=== PATIENT | female | born 1980 | race Caucasian/White ===

== ENCOUNTER 2016-09-21 10:37 | Inpatient (IN) | payer OTHER ==
--- NOTE | 2016-09-13 13:57 | PREOPHP ---
DATE OF ADMISSION: 09/21/2016 The patient is to have surgery with Dr. Andreas Kirkpatrick 09/21/2016. REASON FOR CONSULTATION: Consultation requested by Dr. Andreas Kirkpatrick for medical evaluation and clearance of a 36-year-old woman about to undergo surgery on her left hip. Thank you, Dr. Kirkpatrick, for allowing us to participate in the care of this patient. HISTORY OF PRESENT ILLNESS: Jenifer Cruz, a 36-year-old woman with problems in terms of her left hip secondary to a work injury, is currently being admitted for the correction of the above. In terms of her prior surgical and medical history, surgically she has had arthroscopic surgery of the right knee and had 2 CLINICAL ACCOUNT SPECIALIST laparoscopic procedures for cysts, etc. She has had no medical hospitalizations, has not broken any big bones. ALLERGIES: NOT ALLERGIC TO ANY MEDICATIONS. MEDICATIONS: Other than taking pain medications and anti-inflammatory medication and some B12, she does not take any other chronic medications. She describes her general health as being good. SOCIAL HISTORY: The patient is , has no children. She does not smoke. Alcohol socially. Does drink coffee. Has no difficulty sleeping at night and is employed. FAMILY HISTORY: Both parents are alive and both mother and father are 66 years old. The mother has had a history of skin cancer. Father had a stroke and is a diabetic. Two brothers are in good health. There is a family history, however, of diabetes, heart cancer, hypertension, and stroke. REVIEW OF SYSTEMS HEENT: Has periodic tension headaches. CARDIORESPIRATORY: Denies any chest pain or shortness of breath. GASTROINTESTINAL: No, melena or hematemesis. GENITOURINARY: No urgency, frequency. GYNECOLOGIC: Has regular menses, does have endometriosis to date with her advanced practice psychiatric nurse. MUSCULOSKELETAL: Positive for left hip pain. NEUROPSYCHIATRIC: Positive for the patient being somewhat despondent because of the fact that she cannot really work without pain. GENERAL HEALTH: As above. PHYSICAL EXAMINATION: VITAL SIGNS: The patient's blood pressure was 144/90, pulse was 80 and regular , respirations were 18, temperature 98.5, height 67-1/2 inches, weight 300 pounds. GENERAL: The patient was noted to be a well-developed, well-nourished female, alert and cooperative, in no apparent acute distress, oriented to time, place, and person. HEAD, EARS, EYES, NOSE AND THROAT: Head was atraumatic. Eyes: Pupils were equal, reactive to light and accommodation. Fundi were benign. Tympanic membranes were unremarkable. Nose was negative. Mouth was unremarkable. Fair oral hygiene was present. NECK: Supple without any rigidity. Trachea was midline. Thyroid was unremarkable. Neck veins were flat. Carotid pulses were equal. No bruits were heard. BACK: Unremarkable. CHEST: Symmetrical. BREASTS AND AXILLARY: Did not reveal any masses. LUNGS: Clear to percussion and auscultation. HEART: PMI was at the fifth intercostal space at the midclavicular line. A regular sinus rhythm was noted. No significant murmurs, rubs, or gallops being elicited. ABDOMEN: Soft, good bowel sounds were noted. No significant organomegaly, masses, or tenderness. PELVIRECTAL: Exam per advanced practice psychiatric nurse. EXTREMITIES: Did not reveal any clubbing, edema or cyanosis. Peripheral pulses were physiologic. SKIN: Moist and warm without any eruptions. No gross lymphadenopathy was noted. NEUROLOGIC: Grossly intact. IMPRESSION: 1. Trochanteric bursitis, left hip. 2. Endometriosis. 3. Metabolic syndrome. 4. Obesity. 5. Stable health. LABORATORIES: Review of laboratory and other data revealed the following: The patient's chemistry panel revealed normal electrolytes, random glucose of 116, calcium borderline at 8.5. BUN, creatinine and liver function tests normal. Serum iron was low, test negative. CBC, UA, and PTT were normal. The patient's EKG was normal as was her chest x-ray. DISCUSSION: Dr. Kirkpatrick, I see no contraindication in this patient undergoing current proposed surgery and under desired form of anesthesia and will be more than happy to follow her up with you during her stay at [facility]. Thank you again, Dr. Kirkpatrick, for allowing us to participate in care of this patient. Dictated By: JAKI LAYTON/MIKE Conf#: [id number] DID#: [id number] MTDD
[2016-09-20 16:13] VITALS: BMI 46.8
[2016-09-21] VITALS (18 sets, daily range): BP systolic 116–170; BP diastolic 57–97; PULSE 54–84; RESP 14–20; Ht 170.2 cm; Wt 134.1 kg
[~2016-09-21] VITALS: Ht 170.2 cm; Wt 134.1 kg
[~2016-09-21 10:37] MED LIST: BUPIVACAINE 0.5% (SDV) 30 ML, morphine SULFATE (PF) 8 MG, EPINEPHrine 0.3 MG, KETOROLAC... IRR SCH; CEFAZOLIN 2 GM/50 ML (PMX) 50 ML IVPB ONE; DEXAMETHASONE 1 MG TAB PO ONE; GABAPENTIN 300 MG CAP PO ONE; TRANEXAMIC ACID 1,000 MG in SOD CHLORIDE 0.9% 100 ML IVPB ONE; traMADol 50 MG TAB PO ONE
[2016-09-21] MEDS ORDERED: CA CHLORIDE 10% 10 ML SYRINGE ONE (12:56)
[2016-09-21] MEDS ORDERED: POLYMYXIN/BACITRACIN 1L IRRIG ONE (12:56)
[2016-09-21] MEDS ORDERED: THROMBIN 5000 UNIT VIAL ONE (12:56)
--- NOTE | 2016-09-21 13:52 | HPN ---
Date/Time of Note Date/Time of Note DATE: 09/21/16 TIME: 13:51 Interval H&P Admission Note Pt. seen H&P reviewed: No system changes MICHAEL FERRO MD Sep 21, 2016 13:52
[2016-09-21] MEDS ORDERED: MIDAZOLAM 1 MG/ML 2 ML INJ ONE ×2 (14:20→16:08)
[2016-09-21] MEDS ORDERED: MEPERIDINE 25 MG INJ IV PRN (15:30)
[2016-09-21] MEDS ORDERED: morphine (1 MG/ML) 10ML SYRINGE IV PRN ×2 (15:30)
[2016-09-21] MEDS ORDERED: DIPHENHYDRAMINE 50 MG INJ IV PRN ×2 (15:30→16:00)
[2016-09-21] MEDS ORDERED: FENTAnyl 50 MCG/ML VIAL IV PRN (15:30)
[2016-09-21] MEDS ORDERED: ONDANSETRON 4 MG INJ IV PRN ×2 (15:30→16:00)
[2016-09-21] MEDS ORDERED: ONDANSETRON 4 MG INJ ONE (15:46)
[2016-09-21] MEDS ORDERED: LIDOCAINE 2% (SDV) 5 ML INJ ONE (15:46)
[2016-09-21] MEDS ORDERED: ROCURONIUM 50 MG INJ ONE (15:46)
[2016-09-21] MEDS ORDERED: NEOSTIGMINE 3 MG/3 ML SYRINGE ONE (15:46)
[2016-09-21] MEDS ORDERED: GLYCOPYRROLATE 0.4 MG INJ ONE (15:46)
[2016-09-21] MEDS ORDERED: PROPOFOL 40 ML ONE (15:46)
[2016-09-21] MEDS ORDERED: CEFAZOLIN 1 GM INJ ONE (15:46)
[2016-09-21] MEDS ORDERED: TRANEXAMIC ACID 1,000 MG in SOD CHLORIDE 0.9% 100 ML IV ONE (16:00)
[2016-09-21] MEDS ORDERED: KETOROLAC 15 MG INJ IV PRN (16:00)
[2016-09-21] MEDS ORDERED: ACETAMINOPHEN 500 MG TAB PO PRN (16:00)
[2016-09-21] MEDS ORDERED: BETHANECHOL 25 MG TAB PO PRN (16:00)
[2016-09-21] MEDS ORDERED: morphine 2 MG INJ IV PRN (16:00)
[2016-09-21] MEDS ORDERED: OXYCODONE/ACETAMINOPHEN (5/325) TAB PO PRN (16:00)
[2016-09-21] MEDS ORDERED: MAGNESIUM HYDROXIDE 30ML CUP PO PRN (16:00)
[2016-09-21] MEDS ORDERED: ZOLPIDEM 5 MG TAB PO PRN (16:00)
--- NOTE | 2016-09-21 16:00 | OPR ---
DATE OF OPERATION: 09/21/2016 SURGEON: Michael Kirkpatrick MD INDUSTRIAL PHOTOGRAPHER: Radha Turcios MD PREOPERATIVE DIAGNOSIS: Ischiofemoral impingement, left hip with bursitis. POSTOPERATIVE DIAGNOSIS: 1. Left hip trochanteric (traumatic) bursitis. 2. Ischiofemoral impingement, left hip. PROCEDURES: 1. Left hip open trochanteric bursectomy. 2. Left hip open partial resection of the greater trochanter prominence. Woods Laborer surgeon, Radha Turcios MD, was asked to be present at my request as a result of significant costa rgical complexity associated with this procedure, including positioning of the extremity, manipulati on and protection of the neurovascular structures. In my opinion, the assistance offered by a surgi jeanne dental technician is insufficient and Dr. Turcios should be compensated for his time. PROCEDURE IN DETAIL: Following administration of general endotracheal anesthesia, the patient was p laced in the lateral position with the left side up. Prominences were padded and axillary fold was placed. The patient was very large. She was approximately 350 pounds, so it was very difficult pos itioning. Sterile prep and drape was then undertaken. A lateral incision was then made over the tr ochanter. The incision was carried down through approximately 6 inches of fatty tissue to the later al aspect of the iliotibial band. This was incised, the abductor was split and the trochanteric pro minence was then identified. Severe bursal reactive tissue was then excised completing the trochant radha bursectomy. The posterior aspect of the trochanteric prominence was then excised using an oste otome. Approximately a 7 mm resection was undertaken. A good decompression was confirmed. When he r leg was then placed in extension, no significant impingement was noted. The wound was then thoroughly irrigated, closed in multiple layers. A Prineo dressing was then appl ied with watertight closure. The patient was then placed supine, extubated and transported to [facility] room in stable condition, tolerating the procedure well. Dictated By: MICHAEL GOMEZ/MIKE Conf#: [id number] DID#: [id number]
[2016-09-21] MEDS: CEFAZOLIN 1 GM/50 ML (PMX) 50 ML IVPB SCH (16:17)
[2016-09-21] MEDS ORDERED: MIDAZOLAM 1 MG/ML 2 ML INJ IV ONE (16:30)
[2016-09-21] MEDS: DEXAMETHASONE 2 MG TAB PO SCH (17:36)
[2016-09-21] MEDS: OXYCODONE/ACETAMINOPHEN (5/325) TAB PO PRN (17:36)
[2016-09-21] MEDS: LACTATED RINGER'S 1,000 ML IV SCH ×2 (18:26→21:55)
[2016-09-21 19:39] LABS: ADD SCAN DIFF NO
[2016-09-21 19:41] LABS: BASOPHILS % 0.2 % (0.0-2.0); EOSINOPHILS % 0.2 % (0.0-7.0); HEMATOCRIT 36.8 % (37.0-47.0); HEMOGLOBIN 11.9 g/dl (12.0-16.0); LYMPHOCYTES # 1.4 10^3/ul (0.8-2.9); LYMPHOCYTES % 11.9 % (15.0-51.0); MEAN CORPUSCULAR HEMOGLOBIN 27.8 pg (29.0-33.0); MEAN CORPUSCULAR HGB CONC 32.3 g/dl (32.0-37.0); MEAN PLATELET VOLUME 9.1 fl (7.4-10.4); MONOCYTE # 0.5 10^3/ul (0.3-0.9); MONOCYTES % 4.4 % (0.0-11.0); NEUTROPHIL # 9.8 10^3/ul (1.6-7.5); PLATELET COUNT 286 10^3/UL (140-415); RED BLOOD COUNT 4.28 10^6/ul (4.20-5.40); RED CELL DISTRIBUTION WIDTH 12.9 % (11.5-14.5); WHITE BLOOD COUNT 11.8 10^3/ul (4.8-10.8)
--- NOTE | 2016-09-21 20:01 | RADRPT ---
PROCEDURE: XR Pelvis. CLINICAL INDICATION: Status post left bursectomy. TECHNIQUE: Single AP view of the pelvis. COMPARISON: None. FINDINGS: There is no fracture or dislocation. The joint spaces are preserved. The bowel gas pattern is sisi l. There is soft tissue air in the left hip region. IMPRESSION: 1. No osseous or articular abnormality. 2. Postoperative air in the left hip soft tissues. RPTAT: HTAR .Jake Barnhart MD, MD Date Time Electronically viewed and signed by .Jake Barnhart MD, MD on 09/21/2016 20:01 .R/
[2016-09-21] MEDS: SENNA/DOCUSATE NA (8.6MG/50MG) TAB PO SCH (20:27)
[2016-09-21] MEDS ORDERED: GABAPENTIN 300 MG CAP PO SCH (21:00)
[2016-09-21] MEDS: morphine 4 MG/ML VIAL IV PRN (21:51)
[2016-09-22] MEDS: CEFAZOLIN 1 GM/50 ML (PMX) 50 ML IVPB SCH ×2 (00:13→08:32)
[2016-09-22] MEDS: DEXAMETHASONE 2 MG TAB PO SCH ×3 (00:13→13:10)
[2016-09-22] MEDS: LACTATED RINGER'S 1,000 ML IV SCH ×2 (01:26→11:35)
[2016-09-22] MEDS: morphine 4 MG/ML VIAL IV PRN ×2 (02:59→07:36)
[2016-09-22] MEDS: OXYCODONE/ACETAMINOPHEN (5/325) TAB PO PRN ×3 (05:08→18:37)
[2016-09-22 05:48] LABS: ADD SCAN DIFF NO
[2016-09-22 05:56] LABS: BASOPHILS % 0.1 % (0.0-2.0); HEMATOCRIT 37.3 % (37.0-47.0); HEMOGLOBIN 11.8 g/dl (12.0-16.0); LYMPHOCYTES # 1.5 10^3/ul (0.8-2.9); LYMPHOCYTES % 12.3 % (15.0-51.0); MEAN CORPUSCULAR HEMOGLOBIN 27.7 pg (29.0-33.0); MEAN CORPUSCULAR HGB CONC 31.6 g/dl (32.0-37.0); MEAN CORPUSCULAR VOLUME 87.6 fl (82.0-101.0); MEAN PLATELET VOLUME 9.4 fl (7.4-10.4); MONOCYTE # 0.6 10^3/ul (0.3-0.9); MONOCYTES % 4.7 % (0.0-11.0); NEUTROPHIL # 9.7 10^3/ul (1.6-7.5); NEUTROPHILS % 82.6 % (39.0-77.0); PLATELET COUNT 318 10^3/UL (140-415); RED BLOOD COUNT 4.26 10^6/ul (4.20-5.40); RED CELL DISTRIBUTION WIDTH 12.7 % (11.5-14.5); WHITE BLOOD COUNT 11.8 10^3/ul (4.8-10.8)
--- NOTE | 2016-09-22 06:50 | PN ---
Date/Time of Note Date/Time of Note DATE: 09/22/16 TIME: 06:49 24 hour Interval Summary Patient is awake and alert with minimal pain. Physical examination: Wound is clean and dry. She is neurologically intact. There are no signs of DVT. Impression: Status post trochanteric bursectomy Plan: She will begin physical therapy be discharged later this afternoon. Physical Exam Vital Signs Date Time Temp Pulse Resp B/P Pulse Ox O2 Delivery O2 Flow Rate FiO2 09/21/16 20:10 97.0 65 20 133/68 95 09/21/16 20:00 Nasal Cannula 09/21/16 18:30 2.0 Intake and Output 09/21/16 09/21/16 09/22/16 15:00 23:00 07:00 Intake Total 2300 ml 1150 ml Output Total 450 ml Balance 1850 ml 1150 ml VTE Prophylaxis VTE Prophylaxis Intervention: anti-embolic stocking Lines/Catheters IV Catheter Type: Saline Lock Lobo in Place: No Results Result Diagram: 09/22/16 0447 Results 24hrs Laboratory Tests Test 09/21/16 19:30 09/22/16 04:47 White Blood Count 11.8 H 11.8 H Red Blood Count 4.28 4.26 Hemoglobin 11.9 L 11.8 L Hematocrit 36.8 L 37.3 Mean Corpuscular Volume 86.0 87.6 Mean Corpuscular Hemoglobin 27.8 L 27.7 L Mean Corpuscular Hemoglobin Concent 32.3 31.6 L Red Cell Distribution Width 12.9 12.7 Platelet Count 286 318 Mean Platelet Volume 9.1 9.4 Neutrophils % 83.0 H 82.6 H Lymphocytes % 11.9 L 12.3 L Monocytes % 4.4 4.7 Eosinophils % 0.2 0.0 Basophils % 0.2 0.1 Nucleated Red Blood Cells % 0.0 0.0 Neutrophils # 9.8 H 9.7 H Lymphocytes # 1.4 1.5 Monocytes # 0.5 0.6 Eosinophils # 0.0 0.0 Basophils # 0.0 0.0 Nucleated Red Blood Cells # 0.0 0.0 MICHAEL FERRO MD Sep 22, 2016 06:50
--- NOTE | 2016-09-22 06:51 | DS ---
Date/Time of Note Date/Time of Note DATE: 09/22/16 TIME: 06:50 Discharge Summary Admission/Discharge Info Admit Date/Time Sep 21, 2016 at 11:00 Discharge Date/Time September 22, 2016 following therapy Final Diagnosis Trochanteric bursitis left hip with ischiofemoral impingement Patient Condition: Good Procedures Open bursectomy with partial excision of greater trochanter Hx of Present Illness Chronic left-sided pain following work injury Hospital Course Patient underwent an uncomplicated procedure. Postoperative day #1 she was independent in physical therapy and discharged Primary Care Provider Not On Staff Doctor Pending Labs Laboratory Tests Test 09/21/16 19:30 09/22/16 04:47 White Blood Count 11.810^3/ul (4.8-10.8) 11.810^3/ul (4.8-10.8) Red Blood Count 4.2810^6/ul (4.20-5.40) 4.2610^6/ul (4.20-5.40) Hemoglobin 11.9g/dl (12.0-16.0) 11.8g/dl (12.0-16.0) Hematocrit 36.8% (37.0-47.0) 37.3% (37.0-47.0) Mean Corpuscular Volume 86.0fl (82.0-101.0) 87.6fl (82.0-101.0) Mean Corpuscular Hemoglobin 27.8pg (29.0-33.0) 27.7pg (29.0-33.0) Mean Corpuscular Hemoglobin Concent 32.3g/dl (32.0-37.0) 31.6g/dl (32.0-37.0) Red Cell Distribution Width 12.9% (11.5-14.5) 12.7% (11.5-14.5) Platelet Count 99809^3/UL (140-415) 60833^3/UL (140-415) Mean Platelet Volume 9.1fl (7.4-10.4) 9.4fl (7.4-10.4) Neutrophils % 83.0% (39.0-77.0) 82.6% (39.0-77.0) Lymphocytes % 11.9% (15.0-51.0) 12.3% (15.0-51.0) Monocytes % 4.4% (0.0-11.0) 4.7% (0.0-11.0) Eosinophils % 0.2% (0.0-7.0) 0.0% (0.0-7.0) Basophils % 0.2% (0.0-2.0) 0.1% (0.0-2.0) Nucleated Red Blood Cells % 0.0/100WBC (0.0-0.0) 0.0/100WBC (0.0-0.0) Neutrophils # 9.810^3/ul (1.6-7.5) 9.710^3/ul (1.6-7.5) Lymphocytes # 1.410^3/ul (0.8-2.9) 1.510^3/ul (0.8-2.9) Monocytes # 0.510^3/ul (0.3-0.9) 0.610^3/ul (0.3-0.9) Eosinophils # 0.010^3/ul (0.0-0.5) 0.010^3/ul (0.0-0.5) Basophils # 0.010^3/ul (0.0-0.1) 0.010^3/ul (0.0-0.1) Nucleated Red Blood Cells # 0.010^3/ul (0.0-0.0) 0.010^3/ul (0.0-0.0) MICHAEL FERRO MD Sep 22, 2016 06:51
--- NOTE | 2016-09-22 06:52 | PDOCDIS ---
Discharge Instructions DIAGNOSIS Discharge Diagnosis: Trochanteric bursitis with ischiofemoral impingement CONDITION Patient Condition: Good HOME CARE INSTRUCTIONS: Diet Instructions: Regular ACTIVITY: Activity Restrictions: Slowly Increase Activity Bathing Restrictions: Shower FOLLOW UP/APPOINTMENTS Appointments Two-week SCHOOL/WORK RELEASE May return to School/Work with: With Restrictions School/Work Release Comment: Slowly increase activities may discharge crutches when comfortable MICHAEL FERRO MD Sep 22, 2016 06:52
[2016-09-22 08:27] VITALS: BP 116/66; RESP 18
[2016-09-22] MEDS: SENNA/DOCUSATE NA (8.6MG/50MG) TAB PO SCH (08:34)
[2016-09-22] MEDS ORDERED: ASPIRIN 81 MG TAB PO SCH (09:00)
[2016-09-22] MEDS ORDERED: CYCLOBENZAPRINE 10 MG TAB PO PRN (12:00)
--- NOTE | 2016-09-22 16:14 | CONS ---
DATE OF ADMISSION: 09/21/2016 DATE OF CONSULTATION: 09/22/2016 TYPE OF CONSULTATION: Postoperative consultation followup. The patient was seen approximately at 11:00 a.m. on 09/22/2016. HISTORY OF PRESENT ILLNESS: The patient is somewhat groggy postoperatively. Yesterday at a late adela r, probably secondary to pain medications, the patient's vital signs revealed the following: VITAL SIGNS: Temperature 98.2, pulse 61, respirations 18, blood pressure 116/66, O2 saturation 94% o n room air. HEENT: Unremarkable. LUNGS: Clear. HEART: Reveals a regular exam. IMPRESSION: 1. Status post trochanteric bursitis, left hip open surgery. 2. Metabolic syndrome. 3. Endometriosis. 4. Nausea, probably secondary to the pain medications versus anesthesia. DISCUSSION: Review of laboratory and other data reveals the following: The patient's white count i s 11.8, but hemoglobin and hematocrit are stable. No chemistries were done. DISCUSSION: Plan is per Dr. Kirkpatrick. Medically the patient has been relatively stable; does not ta ke any chronic medications. She may benefit from some anti-nauseant. Thank you again, Dr. Kirkpatrick, for allowing us to participate in the care of this patient. Dictated By: JAKI LAYTON/MIKE Conf#: [id number] DID#: [id number]
== END 2016-09-22 18:50 | disposition home or self-care (01) | DRG 481 ==
LOC: REC 11:00 → MS1 17:00
PROVIDERS: ADMIT Orthopaedic Surgery; ATTEND Orthopaedic Surgery
PROC: 0QN Lower Bones, Release (ICD-10-PCS; 2016-09-21)
PROC: 0MBM0ZZ Excision of Left Hip Bursa and Ligament, Open Approach (ICD-10-PCS; principal; 2016-09-21 15:00)
DX: M70.62 Trochanteric bursitis, left hip (principal); Z68.42 Body mass index [BMI] 45.0-49.9, adult; E88.81 Metabolic syndrome and other insulin resistance; M25.852 Other specified joint disorders, left hip; E66.9 Obesity, unspecified
CPT/HCPCS: 72170; 84703; 85025; 86999; 97116; 97162; 97530; J0171; J0690; J0735; J1885; J2175; J2250; J2270; J2274; J2405; J2710; J3010; J3370; J7120

== ENCOUNTER 2018-05-30 07:53 | Inpatient (IN) | payer BC, OTHER ==
--- NOTE | 2018-05-26 12:23 | PREOPHP ---
DATE OF ADMISSION: 05/30/2018 The patient to have surgery with Dr. Michael Ferro on 05/30/2018. REASON FOR CONSULTATION: Consultation requested by Dr. Michael Ferro for medical evaluation and clearance of a 38-year-old woman about to undergo surgery. Thank you, Dr. Ferro, for allowing us to participate in care of this patient. HISTORY OF PRESENT ILLNESS: Jenifer Cruz, a 38-year-old woman, issues with her left hip is currently being admitted for correction of the above. PAST MEDICAL AND SURGICAL HISTORY: She has had no medical hospitalizations, has had a left hip surgery in 2017, also had arthroscopic surgery on her right knee and has had 2 endoscopic gynecological procedures for a variety of disorders. She has not broken any bones. MEDICATIONS: She is currently taking; 1. Tramadol 50 mg as needed. 2. Amitriptyline 25 mg at bedtime. 3. Trazodone 50 mg at bedtime. ALLERGIES: SHE IS NOT ALLERGIC TO ANY MEDICATIONS. SOCIAL HISTORY: The patient is currently , has no children. She does not smoke. Alcohol socially. Does not drink coffee, is employed and usually has no difficulty sleeping at night. FAMILY HISTORY: Both parents are alive. Father is 68, is diabetic, has had a stroke. Mother is 68, has had skin cancer, but generally is doing well. Two brothers in good health. There is a family history of diabetes, heart, cancer, hypertension and stroke. No thyroid issues. REVIEW OF SYSTEMS: HEENT: Unremarkable. CARDIORESPIRATORY: Denies any chest pain or shortness of breath. GASTROINTESTINAL: No melena or hematemesis. GENITOURINARY: No urgency, frequency. GYNECOLOGIC: Has irregular periods. 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 MUSCULOSKELETAL: Positive for left hip pain. NEUROPSYCHIATRIC: Unremarkable. GENERAL HEALTH: As above. PHYSICAL EXAMINATION: VITAL SIGNS: The patient's blood pressure was 130/90, pulse was 70 and regular, respirations were 18, temperature 97.9, height is 5 feet and 5-1/2 inches, weight 314 pounds. GENERAL: The patient was noted to be a well-developed, well-nourished female, alert and cooperative, in no apparent acute distress, oriented to time, place and person. HEENT: Head was atraumatic. Eyes: Pupils were equal, reactive to light and accommodation. Fundi were grossly benign. Tympanic membranes were unremarkable. Nose was negative. Mouth was unremarkable. Fair oral hygiene was present. NECK: Supple without any rigidity. Trachea was midline. Thyroid was within normal limits. Neck veins were flat. Carotid pulses were equal. No bruits were heard. BACK: Unremarkable. CHEST: Symmetrical. BREASTS AND AXILLARY: Did not reveal any obvious masses. LUNGS: Clear to percussion and auscultation. HEART: PMI is 5th intercostal space at the midclavicular line. A regular sinus rhythm was noted. No significant murmurs, rubs or gallops being elicited. ABDOMEN: Soft. Good bowel sounds were noted. No significant organomegaly, masses or tenderness. GENITALIA AND PELVIRECTAL: Per university administrator, up-to-date. EXTREMITIES: Did not reveal any clubbing, edema, cyanosis. Peripheral pulses were physiologic. SKIN: Moist and warm without any eruptions. No gross lymphadenopathy was noted. NEUROLOGIC: Grossly intact. IMPRESSION: 1. Trochanteric bursitis, left hip with abductor tear and sciatic nerve entrapment. 2. Metabolic syndrome. 3. Stable health. REVIEW OF LABORATORY AND OTHER DATA: Revealed the following: The patient's chemistry panel including electrolytes, glucose, BUN, creatinine, calcium, uric acid, liver function tests, proteins, test, CBC, UA, PT and PTT were normal. The patient's EKG was normal and her chest x-ray revealed minor degenerative changes, no acute infiltrates nor were there any acute cardiopulmonary changes noted. DISCUSSION: Dr. Ferro, I see no contraindication in this patient undergoing current proposed surgery under desired form of anesthesia. I feel she is a suitable candidate at this particular point in time and we will be more than happy to follow her with you during her stay at [facility]. Thank you again, Kaya, for allowing us to participate in the care of this patient. Dictated By: JAKI IVLLAR MD SS/MIKE Conf#: [id number] DID#: [id number] CC: MICHAEL FERRO MD;*EndCC* MTDD
[~2018-05-30] VITALS: Ht 165.1 cm; Wt 152.0 kg
[2018-05-30] VITALS (28 sets, daily range): BP systolic 112–153; BP diastolic 60–89; PULSE 54–82; RESP 13–59
--- NOTE | 2018-05-30 05:46 | HPN ---
Date/Time of Note Date/Time of Note DATE: 05/30/18 TIME: 05:46 Interval H&P Admission Note Pt. seen H&P reviewed: No system changes MICHAEL FERRO MD May 30, 2018 05:46
--- NOTE | 2018-05-30 05:51 | OPR ---
Date/Time of Note Date/Time of Note DATE: 05/30/18 TIME: 05:46 Operative Report Procedure Date: May 30, 2018 Preoperative Diagnosis Left abductor tendon tear with chronic bursitis Postoperative Diagnosis 1. Left gluteus medius tear 2. Left chronic trochanteric bursitis 3. Left sciatic nerve entrapment Operation/Procedure Performed 1. Left open gluteus medius repair 2. Left open trochanteric bursectomy 3. Left sciatic neural lysis 4. Injection of PRP solution to abductor muscle repair Surgeon see signature line [employer]orer [employer] Qasim Penn PA-C Second Laborer [employer]: SABI ODOM Anesthesia Type: general Estimated Blood Loss: 10 - 50 ml's Transfusion none Specimen None Grafts/Implants See op note Complications none Pt Condition Post Procedure: stable Disposition: PACU Procedure Description SENIOR INTEGRATION ARCHITECT SURGEON: Qasim Penn PA-C was asked to be present at my request. The patient is an obese woman and positioning of her extremity is quite difficult. In addition, the assistance offered by a surgical garment assembler is insufficient as a result of the exposure required which in this case obviously involves protection of the sciatic nerve and other neurovascular structures. In my opinion the assistance offered by a surgical garment assembler is insufficient and he should be compensated for his time. PROCEDURE IN DETAIL: Following the administration of general endotracheal a nesthesia supplemented with a local anesthetic, the patient was placed in the right lateral decubitus position after carefully turning her. An axillary fold was placed. The left forearm was sterilely prepped and 60 cc of blood were withdrawn from the antecubital fossa. The blood was then given to the unit support representative from the company to prepare the solution into a PRP concentrate. Sterile prep and drape was then undertaken of the left hip and thigh. A lateral incision was then made over the trochanteric prominence of the left hip. The incision was carried through the subcutaneous tissues exposing the iliotibial band. The IT band was then incised and a severe amount of bursal reactive tissue was then excised. Once the bursectomy was completed, the adductor was visualized. The lateral aspect of the abductor was then investigated and a palpable defect was noted. There was some mild atrophy noted with some fatty infiltration. The entirety of the gluteus medius was avulsed and retracted about 5 mm. THere was no atrophy. A severe bursal reactive tissue was then noted. The bursectomy was completed over the trochanteric prominence and several osteophytes were resected. In addition, a significant prominence of the more posterior superior trochanter was further resected. Attention was then directed to the more medial aspect where the sciatic nerve was encountered. Significant scarring was noted around the nerve and the nerve was completely mobilized. A good vascularity was noted following the neural l ysis that was completed. The lateral aspect of the trochanter was then curetted down to a bleeding cortical cancellous bed. The tendon of the gluteus medius and minimus were then completely mobilized. Following preparation and resection of the prominent trochanter, an an anchor placed into the trochanter. This was a 5.5 mm, triple loaded anchors was then placed into the trochanter and the sutures were then passed in a mattress fashion through the abductor musculature incorporating both the gluteus minimus and gluteus medius. The previously prepared PRP solution was then injected into the area of the abductor repair prior to closure. The abductor was then reapproximated solidly. The wound was thoroughly irrigated. The iliotibial band was then closed using a running #2 permanent suture. The wound was then closed in layers and a Prenio for the final cover. This was watertight. Estimated blood loss was procedure was 50 cc. MICHAEL FERRO MD May 30, 2018 05:51
[~2018-05-30 07:53] MED LIST changes: -BUPIVACAINE 0.5% (SDV) 30 ML, morphine SULFATE (PF) 8 MG, EPINEPHrine 0.3 MG, KETOROLAC... IRR SCH; +CEFAZOLIN 1 GM INJ ONE; -CEFAZOLIN 2 GM/50 ML (PMX) 50 ML IVPB ONE; +DESFLURANE 15 MIN ONE; -DEXAMETHASONE 1 MG TAB PO ONE; -GABAPENTIN 300 MG CAP PO ONE; +POLYMYXIN/BACITRACIN 1L IRRIG IRR ONE; +SUCCINYLCHOLINE CHLORIDE 100 MG/5 ML SYG IV ONE; -TRANEXAMIC ACID 1,000 MG in SOD CHLORIDE 0.9% 100 ML IVPB ONE; -traMADol 50 MG TAB PO ONE
[2018-05-30] MEDS ORDERED: BUPIVACAINE 0.5% (SDV) 30 ML, morphine SULFATE (PF) 8 MG, EPINEPHrine 0.3 MG, KETOROLAC... IRR SCH ×7 (08:00)
[2018-05-30] MEDS ORDERED: TRANEXAMIC ACID 1,000 MG in DEXTROSE 5% 100 ML IVPB ONE (08:00)
[2018-05-30] MEDS ORDERED: SOD CHLORIDE 0.9% 100 ML, TRANEXAMIC ACID 3,000 MG IRR ONE ×2 (08:00)
[2018-05-30] MEDS ORDERED: GABAPENTIN 300 MG CAP PO ONE (08:00)
[2018-05-30] MEDS ORDERED: DEXAMETHASONE 1 MG TAB PO ONE (08:00)
[2018-05-30] MEDS ORDERED: CEFAZOLIN 2 GM/50 ML (PMX) 50 ML IVPB ONE (08:00)
[2018-05-30] MEDS ORDERED: AMIT25TA9 PO (08:36)
[2018-05-30] MEDS ORDERED: NEOSTIGMINE 3 MG/3 ML SYRINGE ONE (08:41)
[2018-05-30] MEDS ORDERED: CEFAZOLIN 1 GM INJ ONE (08:41)
[2018-05-30] MEDS ORDERED: TRAM50TA PO (08:41)
[2018-05-30] MEDS ORDERED: MIDAZOLAM 1 MG/ML 2 ML INJ ONE (08:41)
[2018-05-30] MEDS ORDERED: DEXAMETHASONE 4 MG/ML 5 ML INJ ONE (08:41)
[2018-05-30] MEDS ORDERED: GLYCOPYRROLATE 0.4 MG INJ ONE (08:41)
[2018-05-30] MEDS ORDERED: FENTAnyl 50 MCG/ML VIAL ONE (08:41)
[2018-05-30] MEDS ORDERED: ROCURONIUM 50 MG INJ ONE (08:41)
[2018-05-30] MEDS ORDERED: PROPOFOL 20 ML ONE (08:41)
[2018-05-30] MEDS ORDERED: ONDANSETRON 4 MG INJ ONE (08:41)
[2018-05-30] MEDS ORDERED: TRAZ-111 PO (08:44)
--- NOTE | 2018-05-30 09:22 | PREAC ---
Date/Time of Note Date/Time of Note DATE: 05/30/18 TIME: 09:20 Anesthesia Eval and Record Evaluation Time Pre-Procedure Interview DATE: 05/30/18 TIME: 09:20 Age 38 Sex female NPO: 8 hrs Preoperative diagnosis LEFT HIP TROCHANTERIC BURSITIS Planned procedure LEFT HIP OPEN ABDUCTOR REPAIR, SCIATIC NEUROLYSIS AND TROCHANTERIC BURSECTOMY Past Medical History Past Medical History: Includes GI: Morbid obesity Surgery & Anesthesia Issues No known issue Meds Anticoagulation: No Beta Sara within 24 hr: No Reason Beta Sara not given: Pt. not on B-Sara Reported Medications Trazodone Hcl* (Trazodone Hcl*) 50 Mg Tablet, 50 MG PO QHS, #30 TAB 05/30/18 Tramadol Hcl* (Ultram*) 50 Mg Tablet, 50 MG PO Q8 PRN for PAIN, TAB 05/30/18 Amitriptyline Hcl* (Amitriptyline Hcl*) 25 Mg Tablet, 25 MG PO QHS, #30 TAB 05/30/18 Current Medications Bupivacaine HCl/ Morphine Sulfate/ Epinephrine/ Ketorolac Tromethamine/ Clonidine/Sodium Chloride/ Vancomycin HCl INTRA-OP IRR ; Start 05/30/18 at 08:00 Meds reviewed: Yes Allergies Coded Allergies: No Known Allergy (Unverified , 05/30/18) RYANN MIMS AT MD'S OFFICE. 09/20/16 0953 Allergies Reviewed: Yes Labs/Studies Labs Reviewed: Reviewed by anesthesiologist test: Negative Pre-procedure Exam Last vitals Vital Signs Date Temp Pulse Resp B/P (MAP) Pulse Ox O2 O2 Flow FiO2 Time Delivery Rate 05/30/18 97.6 74 16 144/88 94 Room Air 08:48 (106) Airway: Adequate mouth opening, Adequate thyromental dist Mallampati: Mallampati II Teeth: Normal Lung: Normal Heart: Normal ASA Physical Status ASA physical status: 4 Emergency: None Planned Anesthetic General/MAC: ETT Planned Pain Management Parenteral pain med, Local by surgeon Pre-operative Attestations Prior to commencing anesthesia and surgery, the patient was re-evaluated, there was verification of: *The patient's identity *The results of appropriate recent lab work and preoperative vital signs *The above evaluation not changing prior to induction *Anesthetic plan, risk benefits, alternative and complications discussed with patient/family; questions answered; patient/family understands, accepts and wishes to proceed. Vignesh Roblero M.D. May 30, 2018 09:22
[2018-05-30] MEDS ORDERED: ONDANSETRON 4 MG INJ IV PRN (09:30)
[2018-05-30] MEDS ORDERED: hydrALAzine 20 MG INJ IV PRN (09:30)
[2018-05-30] MEDS ORDERED: LABETALOL HCL 20MG INJ IV PRN (09:30)
[2018-05-30] MEDS ORDERED: ALBUTEROL 0.083% (NEB) 2.5 MG/3 ML AMP HHN PRN (09:30)
[2018-05-30] MEDS ORDERED: FENTAnyl 50 MCG/ML VIAL IV PRN ×3 (09:30)
[2018-05-30] MEDS ORDERED: MIDAZOLAM 1 MG/ML 2 ML INJ IV PRN (09:30)
[2018-05-30] MEDS ORDERED: HYDROmorphONE 1 MG/5 ML IV SYRINGE IV PRN ×3 (09:30)
[2018-05-30] MEDS ORDERED: MEPERIDINE 25 MG INJ IV PRN (09:30)
[2018-05-30] MEDS ORDERED: DIPHENHYDRAMINE 50 MG INJ IV PRN ×2 (09:30→11:00)
[2018-05-30] MEDS ORDERED: OXYCODONE/ACETAMINOPHEN (5/325) TAB PO PRN ×2 (09:30)
[2018-05-30] MEDS ORDERED: TRIMETHOBENZAMIDE 100 MG/ML VIAL IM PRN (09:30)
[2018-05-30] MEDS ORDERED: IPRATROPIUM (NEB) 0.5 MG/2.5 ML AMP HHN PRN (09:30)
[2018-05-30] MEDS ORDERED: EPHEDrine SULFATE 50 MG/5 ML SYG IV PRN (09:30)
[2018-05-30] MEDS ORDERED: POLYMYXIN/BACITRACIN 1L IRRIG ONE (09:31)
[2018-05-30] MEDS ORDERED: POLYMYXIN/BACITRACIN 1L IRRIG IRR ONE (10:30)
[2018-05-30] MEDS ORDERED: SUGAMMADEX SODIUM 200 MG/2 ML VIAL IV ONE (10:42)
[2018-05-30] MEDS ORDERED: MAGNESIUM HYDROXIDE 30ML CUP PO PRN (11:00)
[2018-05-30] MEDS ORDERED: TRANEXAMIC ACID 1,000 MG in DEXTROSE 5% 100 ML IV ONE (11:00)
[2018-05-30] MEDS ORDERED: ZOLPIDEM 5 MG TAB PO PRN (11:00)
[2018-05-30] MEDS ORDERED: oxyCODONE 5 MG TAB PO PRN (11:00)
[2018-05-30] MEDS ORDERED: NACL 0.9% 3 ML SYG IV SCH (11:00)
--- NOTE | 2018-05-30 11:36 | PAC ---
Date/Time of Note Date/Time of Note DATE: 05/30/18 TIME: 11:36 Post-Anesthesia Notes Post-Anesthesia Note Last documented vital signs Vital Signs Date Temp Pulse Resp B/P (MAP) Pulse Ox O2 O2 Flow FiO2 Time Delivery Rate 05/30/18 97.8 82 14 142/70 97 Nasal 2.0 11:20 (94) Cannula Activity: WNL Respiratory function: WNL Cardiovascular function: WNL Mental status: Baseline Pain reasonably controlled: Yes Hydration appropriate: Yes Nausea/Vomiting absent: Yes Vignesh Roblero M.D. May 30, 2018 11:36
[2018-05-30] MEDS: CEFAZOLIN 1 GM/50 ML (PMX) 50 ML IVPB SCH ×2 (11:47→17:57)
[2018-05-30] MEDS: ACETAMINOPHEN 1000MG/100ML IV 100 ML IVPB SCH ×2 (11:59→18:02)
--- NOTE | 2018-05-30 13:33 | CONS ---
Consult Date/Type/Reason Admit Date/Time May 30, 2018 at 10:42 Initial Consult Date 05/23/2018 Type of Consultation: internal medicine Reason for Consultation pre-op medical evaluation and clearance Requesting Provider: MICHAEL FERRO MD Date/Time of Note DATE: 05/30/18 TIME: 13:28 Subjective complaining of pain in recovery room Objective Vitals Vital Signs Date Temp Pulse Resp B/P (MAP) Pulse Ox O2 O2 Flow FiO2 Time Delivery Rate 05/30/18 62 17 139/64 97 Nasal 2.0 12:02 (89) Cannula 05/30/18 97.8 11:20 Intake and Output 05/29/18 05/29/18 05/30/18 1515:00 23:00 07:00 IntakeIntake Total 0 ml BalanceBalance 0 ml Exam vital signs stable rousable and complaining of pain lungs clear heart regular rhythm Results/Medications Home Meds Reported Medications Trazodone Hcl* (Trazodone Hcl*) 50 Mg Tablet, 50 MG PO QHS, #30 TAB 05/30/18 Tramadol Hcl* (Ultram*) 50 Mg Tablet, 50 MG PO Q8 PRN for PAIN, TAB 05/30/18 Amitriptyline Hcl* (Amitriptyline Hcl*) 25 Mg Tablet, 25 MG PO QHS, #30 TAB 05/30/18 Medications Current Medications Hydromorphone HCl (Dilaudid) 0.2 mg PACU PRN IV MILD PAIN 1-3; Start 05/30/18 at 09:30; Stop 05/30/18 at 17:00 Hydromorphone HCl (Dilaudid) 0.4 mg PACU PRN IV MOD PAIN 4-6 Last administered on 05/30/18at 11:52; Admin Dose 0.4 MG; Start 05/30/18 at 09:30; Stop 05/30/18 at 17:00 Hydromorphone HCl (Dilaudid) 0.6 mg PACU PRN IV SEVERE PAIN 7-10 Last administered on 05/30/18at 11:46; Admin Dose 0.6 MG; Start 05/30/18 at 09:30; Stop 05/30/18 at 17:00 Fentanyl (Sublimaze) 25 mcg PACU ORDER PRN IV MILD PAIN 1-3 Last administered on 05/30/18at 12:53; Admin Dose 25 MCG; Start 05/30/18 at 09:30; Stop 05/30/18 at 17:00 Fentanyl (Sublimaze) 50 mcg PACU ORDER PRN IV MOD PAIN 4-6; Start 05/30/18 at 09:30; Stop 05/30/18 at 17:00 Fentanyl (Sublimaze) 75 mcg PACU ORDER PRN IV SEVERE PAIN 7-10; Start 05/30/18 at 09:30; Stop 05/30/18 at 17:00 Oxycodone/ Acetaminophen (Percocet (5/ 325)) 1 tab PACU ORDER PRN PO .PAIN 1-5; Start 05/30/18 at 09:30; Stop 05/30/18 at 17:00 Oxycodone/ Acetaminophen (Percocet (5/ 325)) 2 tab PACU ORDER PRN PO .PAIN 6-10; Start 05/30/18 at 09:30; Stop 05/30/18 at 17:00 Ondansetron HCl (Zofran Inj) 4 mg PACU ORDER PRN IV NAUSEA/VOMITING Last administered on 05/30/18at 11:36; Admin Dose 4 MG; Start 05/30/18 at 09:30; Stop 05/30/18 at 17:00 Trimethobenzamide HCl (Tigan) 200 mg PACU ORDER PRN IM NAUSEA/VOMITING; Start 05/30/18 at 09:30; Stop 05/30/18 at 17:00 Labetalol HCl (Labetalol) 5 mg PACU ORDER PRN IV HIGH BLOOD PRESSURE; Start 05/30/18 at 09:30; Stop 05/30/18 at 17:00 Hydralazine HCl (Apresoline) 5 mg PACU ORDER PRN IV HIGH BLOOD PRESSURE; Start 05/30/18 at 09:30; Stop 05/30/18 at 17:00 Ephedrine Sulfate 5 mg PACU ORDER PRN IV BLOOD PRESSURE SUPPORT; Start 05/30/18 at 09:30; Stop 05/30/18 at 17:00 Albuterol (Proventil 0.083% (Neb)) 2.5 mg PACU ORDER PRN HHN .WHEEZING; Start 05/30/18 at 09:30; Stop 05/30/18 at 17:00 Ipratropium [place] (Atrovent 0.02% (Neb)) 0.5 mg PACU ORDER PRN HHN .WHEEZING; Start 05/30/18 at 09:30; Stop 05/30/18 at 17:00 Meperidine HCl (Demerol) 25 mg PACU ORDER PRN IV .RIGORS Last administered on 05/30/18at 11:35; Admin Dose 25 MG; Start 05/30/18 at 09:30; Stop 05/30/18 at 17:00 Diphenhydramine HCl (Benadryl) 25 mg PACU ORDER PRN IV .PRURITUS; Start 05/30/18 at 09:30; Stop 05/30/18 at 17:00 Midazolam HCl (Versed) 0.5 mg PACU ORDER PRN IV .ANXIETY; Start 05/30/18 at 09:30; Stop 05/30/18 at 17:00 Amitriptyline HCl (Elavil) 25 mg QHS PO ; Start 05/30/18 at 21:00 Trazodone HCl (Desyrel) 50 mg QHS PO ; Start 05/30/18 at 21:00 Lactated Ringer's 1,000 ml @ 100 mls/hr Q10H IV ; Start 05/30/18 at 10:39 Cefazolin Sodium 50 ml @ 100 mls/hr Q8H IVPB Last administered on 05/30/18at 11:47; Admin Dose 100 MLS/HR; Start 05/30/18 at 11:00; Stop 05/31/18 at 03:29 Senna/Docusate Sodium (Senokot-S) 1 tab BID PO ; Start 05/30/18 at 21:00 Simethicone (Mylicon) 80 mg TID PRN PO .GAS; Start 05/30/18 at 11:00 Magnesium Hydroxide (Milk Of Mag) 30 ml BID PRN PO .CONSTIPATION; Start 05/30/18 at 11:00 Magnesium Hydroxide (Milk Of Mag) 30 ml HS PO ; Start 06/01/18 at 21:00 Dexamethasone (Decadron) 2 mg Q6 PO ; Start 05/30/18 at 12:00; Stop 05/31/18 at 06:01 Gabapentin (Neurontin) 300 mg HS PO ; Start 05/30/18 at 21:00 Acetaminophen 100 ml @ 400 mls/hr Q8H IVPB Last administered on 05/30/18at 11:59; Admin Dose 400 MLS/HR; Start 05/30/18 at 11:00; Stop 05/31/18 at 03:14 Oxycodone HCl (Roxicodone) 15 mg Q4H PRN PO .PAIN; Start 05/30/18 at 11:00 Oxycodone HCl (Roxicodone) 10 mg Q4H PRN PO .PAIN; Start 05/30/18 at 11:00 Oxycodone HCl (Roxicodone) 5 mg Q4H PRN PO .PAIN; Start 05/30/18 at 11:00 Hydromorphone HCl (Dilaudid) 1 mg Q4H PRN IV .BREAKTHROUGH PAIN; Start 05/30/18 at 11:00 Ondansetron HCl (Zofran Inj) 4 mg Q6H PRN IV NAUSEA/VOMITING; Start 05/30/18 at 11:00 Diphenhydramine HCl (Benadryl) 25 mg Q6H PRN IV .PRURITUS; Start 05/30/18 at 11:00 Zolpidem Tartrate (Ambien) 10 mg HS PRN PO .INSOMNIA; Start 05/30/18 at 11:00 IV Flush (NS 3 ml) 3 ml per protocol IV ; Start 05/30/18 at 11:00 Aspirin (Ecotrin) 325 mg DAILY PO ; Start 05/31/18 at 09:00 Enoxaparin Sodium (Lovenox) 30 mg BID SC ; Start 05/30/18 at 21:00 Assessment/Plan Hospital Course (Demo Recall) left hip and sciatic nerve pain pre-op Assessment/Plan (Daily) maryjo follow with you . thank you -------- [facility] May 30, 2018 13:33
[2018-05-30] MEDS: HYDROmorphONE 1 MG/ML SYG IV PRN ×3 (14:14→22:25)
[2018-05-30] MEDS: DEXAMETHASONE 2 MG TAB PO SCH ×2 (14:14→17:56)
[2018-05-30] MEDS: LACTATED RINGER'S 1,000 ML IV SCH (14:17)
[2018-05-30] MEDS: oxyCODONE 5 MG TAB PO PRN ×2 (16:45→20:46)
[2018-05-30] MEDS ORDERED: NEOMYC/POLYMYX/BACIT 0.9 GM OINT ONE (16:48)
[2018-05-30] MEDS: ONDANSETRON 4 MG INJ IV PRN (18:21)
[2018-05-30] MEDS: AMITRIPTYLINE 25 MG TAB PO SCH (22:21)
[2018-05-30] MEDS: GABAPENTIN 300 MG CAP PO SCH (22:21)
[2018-05-30] MEDS: SENNA/DOCUSATE NA (8.6MG/50MG) TAB PO SCH (22:21)
[2018-05-30] MEDS: traZODone 50 MG TAB PO SCH (22:21)
[2018-05-30] MEDS: ENOXAPARIN 30 MG/0.3 ML SYG SC SCH (22:31)
[2018-05-31] MEDS: DEXAMETHASONE 2 MG TAB PO SCH ×2 (00:38→05:45)
[2018-05-31] MEDS: oxyCODONE 5 MG TAB PO PRN ×5 (00:38→20:18)
[2018-05-31] MEDS: HYDROmorphONE 1 MG/ML SYG IV PRN ×2 (02:22→23:52)
[2018-05-31] MEDS: LACTATED RINGER'S 1,000 ML IV SCH ×3 (02:22→16:39)
[2018-05-31 02:35] VITALS: BP 108/53; PULSE 66; RESP 20
[2018-05-31] MEDS: CEFAZOLIN 1 GM/50 ML (PMX) 50 ML IVPB SCH (03:03)
[2018-05-31] MEDS: ACETAMINOPHEN 1000MG/100ML IV 100 ML IVPB SCH (03:42)
--- NOTE | 2018-05-31 06:02 | PN ---
Date/Time of Note Date/Time of Note DATE: 05/31/18 TIME: 06:01 Subjective Awake and alert this morning. Mild pain. Objective Vitals Vital Signs Date Temp Pulse Resp B/P (MAP) Pulse Ox O2 O2 Flow FiO2 Time Delivery Rate 05/31/18 98.1 66 20 108/53 93 02:35 (71) 05/30/18 Nasal 2.0 16:55 Cannula Intake and Output 05/30/18 05/30/18 05/31/18 1515:00 23:00 07:00 IntakeIntake Total 2400 ml 650 ml 1100 ml OutputOutput Total 500 ml BalanceBalance 2400 ml 150 ml 1100 ml Wound clean and dry. Neurologically intact. No signs of DVT. Medications Medications Current Medications Amitriptyline HCl (Elavil) 25 mg QHS PO Last administered on 05/30/18 22:21; Admin Dose 25 MG; Start 05/30/18 at 21:00 Trazodone HCl (Desyrel) 50 mg QHS PO Last administered on 05/30/18 22:21; Admin Dose 50 MG; Start 05/30/18 at 21:00 Lactated Ringer's 1,000 ml @ 100 mls/hr Q10H IV Last administered on 05/31/18 02:22; Admin Dose 100 MLS/HR; Start 05/30/18 at 10:39 Senna/Docusate Sodium (Senokot-S) 1 tab BID PO Last administered on 05/30/18 22:21; Admin Dose 1 TAB; Start 05/30/18 at 21:00 Simethicone (Mylicon) 80 mg TID PRN PO .GAS; Start 05/30/18 at 11:00 Magnesium Hydroxide (Milk Of Mag) 30 ml BID PRN PO .CONSTIPATION; Start 05/30/18 at 11:00 Magnesium Hydroxide (Milk Of Mag) 30 ml HS PO ; Start 06/01/18 at 21:00 Dexamethasone (Decadron) 2 mg Q6 PO Last administered on 05/31/18at 05:45; Admin Dose 2 MG; Start 05/30/18 at 12:00; Stop 05/31/18 at 06:01 Gabapentin (Neurontin) 300 mg HS PO Last administered on 05/30/18 22:21; Admin Dose 300 MG; Start 05/30/18 at 21:00 Oxycodone HCl (Roxicodone) 15 mg Q4H PRN PO .PAIN Last administered on 05/31/18 05:44; Admin Dose 15 MG; Start 05/30/18 at 11:00 Oxycodone HCl (Roxicodone) 10 mg Q4H PRN PO .PAIN Last administered on 05/30/18 16:45; Admin Dose 10 MG; Start 05/30/18 at 11:00 Oxycodone HCl (Roxicodone) 5 mg Q4H PRN PO .PAIN; Start 05/30/18 at 11:00 Hydromorphone HCl (Dilaudid) 1 mg Q4H PRN IV .BREAKTHROUGH PAIN Last admin istered on 05/31/18 02:22; Admin Dose 1 MG; Start 05/30/18 at 11:00 Ondansetron HCl (Zofran Inj) 4 mg Q6H PRN IV NAUSEA/VOMITING Last administered on 05/30/18 18:21; Admin Dose 4 MG; Start 05/30/18 at 11:00 Diphenhydramine HCl (Benadryl) 25 mg Q6H PRN IV .PRURITUS; Start 05/30/18 at 11:00 Zolpidem Tartrate (Ambien) 10 mg HS PRN PO .INSOMNIA; Start 05/30/18 at 11:00 IV Flush (NS 3 ml) 3 ml per protocol IV ; Start 05/30/18 at 11:00 Aspirin (Ecotrin) 325 mg DAILY PO ; Start 05/31/18 at 09:00 Enoxaparin Sodium (Lovenox) 30 mg BID SC Last administered on 05/30/18 22:31; Admin Dose 30 MG; Start 05/30/18 at 21:00 VTE Prophylaxis Risk score (from Nsg)>0 risk: 5 SCD applied (from Nsg): Yes Lines/Catheters IV Catheter Type: Saline Lock Lboo in Place: No Assessment/Plan Assessment/Plan Assessment: Status post abductor repair Plan: Begin PT this morning and discharge when independent. MICHAEL FERRO MD May 31, 2018 06:02
--- NOTE | 2018-05-31 06:03 | DS ---
Date/Time of Note Date/Time of Note DATE: 05/31/18 TIME: 06:03 Discharge Summary Admission/Discharge Info Admit Date/Time May 30, 2018 at 10:42 Discharge Date/Time May 31, 2018 Discharge Diagnosis Abductor tear Patient Condition: Good Hospital Course Admitted and underwent uncomplicated procedure. She was cleared and discharged after clearing physical therapy Home Meds Reported Medications Trazodone Hcl* (Trazodone Hcl*) 50 Mg Tablet, 50 MG PO QHS, #30 TAB 05/30/18 Tramadol Hcl* (Ultram*) 50 Mg Tablet, 50 MG PO Q8 PRN for PAIN, TAB 05/30/18 Amitriptyline Hcl* (Amitriptyline Hcl*) 25 Mg Tablet, 25 MG PO QHS, #30 TAB 05/30/18 Follow-up Plan 2 weeks Primary Care Provider Not On Staff Doctor MICHAEL FERRO MD May 31, 2018 06:03
--- NOTE | 2018-05-31 06:03 | PDOCDIS ---
Discharge Instructions DIAGNOSIS Discharge Diagnosis Abductor tear CONDITION [id number] Patient Condition: [id number] Good HOME CARE INSTRUCTIONS: [id number] Diet Instructions: [id number] Regular ACTIVITY: [id number] Activity Restrictions: Znecs5s Slowly Increase Activity Keep Limb Elevated [id number] Bathing Restrictions: [id number] Shower FOLLOW UP/APPOINTMENTS Follow-up Plan 2 weeks SCHOOL/WORK RELEASE May return to School/Work with: With Restrictions School/Work Release Comment: Foot flat weightbearing with crutches or walker for 4 weeks MICHAEL FERRO MD May 31, 2018 06:03
--- NOTE | 2018-05-31 07:59 | CONS ---
Consult Date/Type/Reason Admit Date/Time May 30, 2018 at 10:42 Initial Consult Date 05/23/2018 Type of Consultation: internal medicine Reason for Consultation medical f/u Requesting Provider: MICHAEL FERRO MD Date/Time of Note DATE: 05/31/18 TIME: 07:56 Subjective slept last night pain medications holding Objective Vitals Vital Signs Date Temp Pulse Resp B/P (MAP) Pulse Ox O2 O2 Flow FiO2 Time Delivery Rate 05/31/18 98.1 66 20 108/53 93 02:35 (71) 05/30/18 Nasal 2.0 16:55 Cannula Intake and Output 05/30/18 05/30/18 05/31/18 1515:00 23:00 07:00 IntakeIntake Total 2400 ml 650 ml 1100 ml OutputOutput Total 500 ml BalanceBalance 2400 ml 150 ml 1100 ml Exam vital signs stable HEENT negative lungs clear heart regular rhythm Results/Medications Results 24 hrs Laboratory Tests Test 05/31/18 06:55 Lab Scanned Report REFERENCE LAB Home Meds Reported Medications Trazodone Hcl* (Trazodone Hcl*) 50 Mg Tablet, 50 MG PO QHS, #30 TAB 05/30/18 Tramadol Hcl* (Ultram*) 50 Mg Tablet, 50 MG PO Q8 PRN for PAIN, TAB 05/30/18 Amitriptyline Hcl* (Amitriptyline Hcl*) 25 Mg Tablet, 25 MG PO QHS, #30 TAB 05/30/18 Medications Current Medications Amitriptyline HCl (Elavil) 25 mg QHS PO Last administered on 05/30/18at 22:21; Admin Dose 25 MG; Start 05/30/18 at 21:00 Trazodone HCl (Desyrel) 50 mg QHS PO Last administered on 05/30/18at 22:21; Admin Dose 50 MG; Start 05/30/18 at 21:00 Lactated Ringer's 1,000 ml @ 100 mls/hr Q10H IV Last administered on 05/31/18at 02:22; Admin Dose 100 MLS/HR; Start 05/30/18 at 10:39 Senna/Docusate Sodium (Senokot-S) 1 tab BID PO Last administered on 05/30/18at 22:21; Admin Dose 1 TAB; Start 05/30/18 at 21:00 Simethicone (Mylicon) 80 mg TID PRN PO .GAS; Start 05/30/18 at 11:00 Magnesium Hydroxide (Milk Of Mag) 30 ml BID PRN PO .CONSTIPATION; Start 05/30/18 at 11:00 Magnesium Hydroxide (Milk Of Mag) 30 ml HS PO ; Start 06/01/18 at 21:00 Gabapentin (Neurontin) 300 mg HS PO Last administered on 05/30/18at 22:21; Admin Dose 300 MG; Start 05/30/18 at 21:00 Oxycodone HCl (Roxicodone) 15 mg Q4H PRN PO .PAIN Last administered on 05/31/18 05:44; Admin Dose 15 MG; Start 05/30/18 at 11:00 Oxycodone HCl (Roxicodone) 10 mg Q4H PRN PO .PAIN Last administered on 05/30/18 16:45; Admin Dose 10 MG; Start 05/30/18 at 11:00 Oxycodone HCl (Roxicodone) 5 mg Q4H PRN PO .PAIN; Start 05/30/18 at 11:00 Hydromorphone HCl (Dilaudid) 1 mg Q4H PRN IV .BREAKTHROUGH PAIN Last administered on 05/31/18 02:22; Admin Dose 1 MG; Start 05/30/18 at 11:00 Ondansetron HCl (Zofran Inj) 4 mg Q6H PRN IV NAUSEA/VOMITING Last administered on 05/30/18at 18:21; Admin Dose 4 MG; Start 05/30/18 at 11:00 Diphenhydramine HCl (Benadryl) 25 mg Q6H PRN IV .PRURITUS; Start 05/30/18 at 11:00 Zolpidem Tartrate (Ambien) 10 mg HS PRN PO .INSOMNIA; Start 05/30/18 at 11:00 IV Flush (NS 3 ml) 3 ml per protocol IV ; Start 05/30/18 at 11:00 Aspirin (Ecotrin) 325 mg DAILY PO ; Start 05/31/18 at 09:00 Enoxaparin Sodium (Lovenox) 30 mg BID SC Last administered on 05/30/18at 22:31; Admin Dose 30 MG; Start 05/30/18 at 21:00 Assessment/Plan Hospital Course (Demo Recall) left hip and sciatic nerve pain pre-op Assessment/Plan (Daily) patient medically stable plan per thank you JAKI Guillen MD May 31, 2018 07:59
[2018-05-31 08:15] VITALS: BP 126/64; PULSE 66; RESP 20
[2018-05-31] MEDS: SENNA/DOCUSATE NA (8.6MG/50MG) TAB PO SCH ×2 (09:03→21:00)
[2018-05-31] MEDS: ASPIRIN (EC) 325 MG TAB PO SCH (09:03)
[2018-05-31] MEDS: ENOXAPARIN 30 MG/0.3 ML SYG SC SCH ×2 (09:04→20:20)
[2018-05-31] MEDS: ONDANSETRON 4 MG INJ IV PRN (09:51)
[2018-05-31 14:15] VITALS: BP 121/58; PULSE 77
--- NOTE | 2018-05-31 15:46 | QN ---
Documentation Comment spoke to who will consult on patient re:problem with weaning off O2 [facility] AJKI VILLAR MD May 31, 2018 15:46
[2018-05-31] MEDS: ALBUTEROL/IPRATROPIUM (NEB) 3 ML AMP HHN SCH ×2 (17:46→20:57)
--- NOTE | 2018-05-31 18:02 | CONS ---
DATE OF ADMISSION: 05/30/2018 DATE OF CONSULTATION: TYPE OF CONSULTATION: Pulmonary. REASON FOR CONSULTATION: Shortness of breath, hypoxemia. Thank you, Dr. Castro, for this consultation. HISTORY OF PRESENT ILLNESS: This is a pleasant 38-year-old lady who has had significant pain in left hip. She underwent left open gluteus medius repair with left open trochanteric bursectomy and left sciatic neurolysis. Post-procedure, the patient has had significant hypoxemia with oxygen saturation s hovering in the low 90s on 4 liters supplemental O2 with increased sputum production and productive cough. She denies any fever or chills. She has no prior respiratory problems including asthma, obs tructive sleep apnea or significant tobacco use. PAST MEDICAL HISTORY: As above. MEDICATIONS: Per chart. ALLERGIES: NONE. SOCIAL HISTORY: Nonsmoker, no alcohol, no history of drug use. FAMILY HISTORY: Noncontributory. REVIEW OF SYSTEMS: A 12-point review of systems was negative other than that mentioned above. PHYSICAL EXAMINATION: GENERAL: Well-nourished, well-developed lady, appears comfortable at rest, in no acute distress. VITAL SIGNS: Temperature 99, pulse 77, blood pressure 121/58, O2 saturation 96% on 5 liters nasal ca nnula. NECK: Supple. No JVD or lymphadenopathy. CARDIAC: S1, S2. No added sounds or murmurs. CHEST: Diminished air entry bilaterally. ABDOMEN: Obese, soft, nontender. No guarding or rebound. EXTREMITIES: No cyanosis, clubbing, edema. NEUROLOGIC: Generalized weakness, but no focal deficits. LABORATORY DATA: Pending at time of this dictation. DIAGNOSTIC DATA: Chest x-ray demonstrated low lung volumes with compressive atelectasis. IMPRESSION AND PLAN: Status post left hip surgery and now with significant postop hypoxemia likely s econdary to atelectasis and alveolar hypoventilation from patient's body habitus. Differential does include thromboembolic disease and/or early pneumonic process. I will await lab work. I have also r equested lower extremity Dopplers. I encouraged incentive spirometry and ambulation. If there is no significant improvement, by tomorrow the patient may benefit from CT angiogram to rule out pulmonary embolism. Dictated By: TAE HILL/MIKE Conf#: [id number] DID#: [id number] CC: MICHAEL FERRO MD; JAKI CASTRO MD;*[facility]*
[2018-05-31 19:55] VITALS: BP 121/62; PULSE 75; RESP 20
[2018-05-31] MEDS: traZODone 50 MG TAB PO SCH (20:15)
[2018-05-31] MEDS: AMITRIPTYLINE 25 MG TAB PO SCH (20:16)
[2018-05-31] MEDS: GABAPENTIN 300 MG CAP PO SCH (20:16)
[2018-05-31 23:55] VITALS: BP 116/56; PULSE 77; RESP 20
[2018-06-01] MEDS: ALBUTEROL/IPRATROPIUM (NEB) 3 ML AMP HHN SCH ×5 (01:48→19:34)
[2018-06-01] MEDS: LACTATED RINGER'S 1,000 ML IV SCH ×2 (02:39→12:39)
[2018-06-01] MEDS: HYDROmorphONE 1 MG/ML SYG IV PRN ×2 (05:43→21:09)
[2018-06-01] MEDS: ASPIRIN (EC) 325 MG TAB PO SCH (08:01)
[2018-06-01] MEDS: oxyCODONE 5 MG TAB PO PRN ×3 (08:01→18:20)
[2018-06-01] MEDS: SENNA/DOCUSATE NA (8.6MG/50MG) TAB PO SCH ×2 (08:01→21:16)
[2018-06-01] MEDS: ENOXAPARIN 30 MG/0.3 ML SYG SC SCH ×2 (08:06→21:15)
[2018-06-01 08:44] VITALS: BP 124/58; PULSE 88; RESP 17
--- NOTE | 2018-06-01 12:33 | CONS ---
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 She is seen by pulmonary service s/p ABG and on examination didn't appear to be in respiratory distress, repeat BMP showed normal potassium. Continue current home medications (amitryptyline and trazadone) Consultation Date/Type/Reason Admit Date/Time Jun 01, 2018 at 08:05 Initial Consult Date Requesting Provider: MICHAEL FERRO MD Date/Time of Note DATE: 06/01/18 TIME: 12:30 24 HR Interval Summary Free Text/Dictation Patient seen and examined at beside, no acute events overnight. She c/o rib pain and pain at surgical site. She is tolerating diet and passing gas. Exam/Review of Systems Exam Vitals Vital Signs Date Temp Pulse Resp B/P (MAP) Pulse Ox O2 O2 Flow FiO2 Time Delivery Rate 06/01/18 71 20 Nasal 97 09:24 Cannula 06/01/18 98.0 124/58 100 08:44 (80) 06/01/18 3.0 01:48 Intake and Output 05/31/18 05/31/18 06/01/18 1515:00 23:00 07:00 IntakeIntake Total 790 ml 560 ml OutputOutput Total 400 ml BalanceBalance 790 ml 160 ml Exam General: Mild distress due to overall pain. Skin appropriate for ethnicity Eye: Extraocular movements are intact, Normal conjunctiva. HENT: Normocephalic, atraumatic. Respiratory: Respirations are non-labored, Breath sounds are equal, Symmetrical chest wall expansion. Cardiovascular: S1, S2. No murmur. No LE edema Gastrointestinal: Soft, Non-tender, Obese, Normal bowel sounds. Integumentary: Warm to touch. Neurologic: Alert, Oriented. Cognition and Speech: Speech clear and coherent, Functional cognition intact. Psychiatric: Cooperative, Appropriate mood & affect. Results Result Diagram: 06/01/18 0504 06/01/18 1051 Results 24hrs Laboratory Tests Test 06/01/18 05:04 06/01/18 07:00 06/01/18 10:51 White Blood Count 15.6 #H Red Blood Count 4.31 Hemoglobin 12.1 Hematocrit 38.9 Mean Corpuscular Volume 90.3 Mean Corpuscular Hemoglobin 28.1 L Mean Corpuscular 31.1 L Hemoglobin Concent Red Cell Distribution Width 13.1 Platelet Count 247 # Mean Platelet Volume 9.5 Immature Granulocytes % 0.700 H Neutrophils % 81.5 H Lymphocytes % 10.0 L Monocytes % 7.7 Eosinophils % 0.0 Basophils % 0.1 Nucleated Red Blood Cells % 0.0 Immature Granulocytes # 0.110 H Neutrophils # 12.7 H Lymphocytes # 1.6 Monocytes # 1.2 H Eosinophils # 0.0 Basophils # 0.0 Nucleated Red Blood Cells # 0.0 Sodium Level 140 140 Potassium Level 5.8 H 4.9 Chloride Level 104 104 Carbon Dioxide Level 31 30 Anion Gap 5 6 Blood Urea Nitrogen 20 18 Creatinine 0.96 0.80 Est Glomerular Filtrat > 60 > 60 Rate mL/min Glucose Level 197 210 Calcium Level 9.0 8.6 Phosphorus Level 3.3 Magnesium Level 2.4 Blood Gas Specimen Source Blood arterial Arterial Blood Date Drawn 06/01/2018 7:55:43 AM Arterial Blood pH 7.290 *L (Temp corrected) Arterial Blood pCO2 53.7 H (Temp correct) Arterial Blood pO2 52.3 *L (Temp corrected) Arterial Blood HCO3 25.2 Arterial Blood Base Excess -2.1 Arterial Blood 87.0 L Oxygen Saturation Charles Test ACCEPTAB Arterial Blood Gas Right Radial Puncture Site Arterial 0.4 Blood Carboxyhemoglobin Arterial Blood Methemoglobin 0.1 Blood Gas A-a O2 Differential 33.1 H Oxyhemoglobin Percent 86.6 L Blood Gas Temperature 37.0 Blood Gas Modality ROOM AIR FiO2 21.0 Blood Gas Critical Value Musa SOW RN Read Back Blood Gas Notified Whom DT Blood Gas Notified Time 06/01/2018 8:20:30 AM Medications Medication Current Medications Amitriptyline HCl (Elavil) 25 mg QHS PO Last administered on 05/31/18at 20:16; Admin Dose 25 MG; Start 05/30/18 at 21:00 Trazodone HCl (Desyrel) 50 mg QHS PO Last administered on 05/31/18at 20:15; Admin Dose 50 MG; Start 05/30/18 at 21:00 Lactated Ringer's 1,000 ml @ 100 mls/hr Q10H IV Last administered on 05/31/18 02:22; Admin Dose 100 MLS/HR; Start 05/30/18 at 10:39 Senna/Docusate Sodium (Senokot-S) 1 tab BID PO Last administered on 06/01/18 08:01; Admin Dose 1 TAB; Start 05/30/18 at 21:00 Simethicone (Mylicon) 80 mg TID PRN PO .GAS; Start 05/30/18 at 11:00 Magnesium Hydroxide (Milk Of Mag) 30 ml BID PRN PO .CONSTIPATION; Start 05/30/18 at 11:00 Magnesium Hydroxide (Milk Of Mag) 30 ml HS PO ; Start 06/01/18 at 21:00 Gabapentin (Neurontin) 300 mg HS PO Last administered on 05/31/18 20:16; Admin Dose 300 MG; Start 05/30/18 at 21:00 Oxycodone HCl (Roxicodone) 15 mg Q4H PRN PO .PAIN Last administered on 06/01/18 08:01; Admin Dose 15 MG; Start 05/30/18 at 11:00 Oxycodone HCl (Roxicodone) 10 mg Q4H PRN PO .PAIN Last administered on 05/30/18 16:45; Admin Dose 10 MG; Start 05/30/18 at 11:00 Oxycodone HCl (Roxicodone) 5 mg Q4H PRN PO .PAIN; Start 05/30/18 at 11:00 Hydromorphone HCl (Dilaudid) 1 mg Q4H PRN IV .BREAKTHROUGH PAIN Last administered on 06/01/18 05:43; Admin Dose 1 MG; Start 05/30/18 at 11:00 Ondansetron HCl (Zofran Inj) 4 mg Q6H PRN IV NAUSEA/VOMITING Last administered on 05/31/18 09:51; Admin Dose 4 MG; Start 05/30/18 at 11:00 Diphenhydramine HCl (Benadryl) 25 mg Q6H PRN IV .PRURITUS; Start 05/30/18 at 11:00 Zolpidem Tartrate (Ambien) 10 mg HS PRN PO .INSOMNIA; Start 05/30/18 at 11:00 IV Flush (NS 3 ml) 3 ml per protocol IV ; Start 05/30/18 at 11:00 Aspirin (Ecotrin) 325 mg DAILY PO Last administered on 06/01/18at 08:01; Admin Dose 325 MG; Start 05/31/18 at 09:00 Enoxaparin Sodium (Lovenox) 30 mg BID SC Last administered on 06/01/18at 08:06; Admin Dose 30 MG; Start 05/30/18 at 21:00 Albuterol/ Ipratropium (Duoneb) 3 ml Q6H RESP THERAPY HHN Last administered on 06/01/18at 09:24; Admin Dose 3 ML; Start 05/31/18 at 16:30 RICHARD MORRISSEY MD Jun 01, 2018 12:33
--- NOTE | 2018-06-01 13:36 | CONS ---
Consult Date/Type/Reason Admit Date/Time Jun 01, 2018 at 08:05 Initial Consult Date Type of Consultation: Pulm Requesting Provider: MICHAEL FERRO MD Date/Time of Note DATE: 06/01/18 TIME: 13:33 Subjective c/o dyspnea and cough at rest. Objective Vitals Vital Signs Date Temp Pulse Resp B/P (MAP) Pulse Ox O2 O2 Flow FiO2 Time Delivery Rate 06/01/18 71 20 Nasal 97 09:24 Cannula 06/01/18 98.0 124/58 100 08:44 (80) 06/01/18 3.0 01:48 Intake and Output 05/31/18 05/31/18 06/01/18 1515:00 23:00 07:00 IntakeIntake Total 790 ml 560 ml OutputOutput Total 400 ml BalanceBalance 790 ml 160 ml Exam HEENT: Neck supple; no JVD; no LAD CVS: RRR, S1 and S2 CHEST: Diffuse wheezing b/l ABD: Obese, soft, NT, + BS EXT: No c/c/e Results/Medications Result Diagram: 06/01/18 0504 06/01/18 1051 Results 24 hrs Laboratory Tests Test 06/01/18 05:04 06/01/18 07:00 06/01/18 10:51 White Blood Count 15.6 #H Red Blood Count 4.31 Hemoglobin 12.1 Hematocrit 38.9 Mean Corpuscular Volume 90.3 Mean Corpuscular Hemoglobin 28.1 L Mean Corpuscular 31.1 L Hemoglobin Concent Red Cell Distribution Width 13.1 Platelet Count 247 # Mean Platelet Volume 9.5 Immature Granulocytes % 0.700 H Neutrophils % 81.5 H Lymphocytes % 10.0 L Monocytes % 7.7 Eosinophils % 0.0 Basophils % 0.1 Nucleated Red Blood Cells % 0.0 Immature Granulocytes # 0.110 H Neutrophils # 12.7 H Lymphocytes # 1.6 Monocytes # 1.2 H Eosinophils # 0.0 Basophils # 0.0 Nucleated Red Blood Cells # 0.0 Sodium Level 140 140 Potassium Level 5.8 H 4.9 Chloride Level 104 104 Carbon Dioxide Level 31 30 Anion Gap 5 6 Blood Urea Nitrogen 20 18 Creatinine 0.96 0.80 Est Glomerular Filtrat > 60 > 60 Rate mL/min Glucose Level 197 210 Calcium Level 9.0 8.6 Phosphorus Level 3.3 Magnesium Level 2.4 Blood Gas Specimen Source Blood arterial Arterial Blood Date Drawn 06/01/2018 7:55:43 AM Arterial Blood pH 7.290 *L (Temp corrected) Arterial Blood pCO2 53.7 H (Temp correct) Arterial Blood pO2 52.3 *L (Temp corrected) Arterial Blood HCO3 25.2 Arterial Blood Base Excess -2.1 Arterial Blood 87.0 L Oxygen Saturation Charles Test ACCEPTAB Arterial Blood Gas Right Radial Puncture Site Arterial 0.4 Blood Carboxyhemoglobin Arterial Blood Methemoglobin 0.1 Blood Gas A-a O2 Differential 33.1 H Oxyhemoglobin Percent 86.6 L Blood Gas Temperature 37.0 Blood Gas Modality ROOM AIR FiO2 21.0 Blood Gas Critical Value Musa SOW RN Read Back Blood Gas Notified Whom DT Blood Gas Notified Time 06/01/2018 8:20:30 AM Home Meds Reported Medications Trazodone Hcl* (Trazodone Hcl*) 50 Mg Tablet, 50 MG PO QHS, #30 TAB 05/30/18 Tramadol Hcl* (Ultram*) 50 Mg Tablet, 50 MG PO Q8 PRN for PAIN, TAB 05/30/18 Amitriptyline Hcl* (Amitriptyline Hcl*) 25 Mg Tablet, 25 MG PO QHS, #30 TAB 05/30/18 Medications Current Medications Amitriptyline HCl (Elavil) 25 mg QHS PO Last administered on 05/31/18at 20:16; Admin Dose 25 MG; Start 05/30/18 at 21:00 Trazodone HCl (Desyrel) 50 mg QHS PO Last administered on 05/31/18at 20:15; Admin Dose 50 MG; Start 05/30/18 at 21:00 Senna/Docusate Sodium (Senokot-S) 1 tab BID PO Last administered on 06/01/18at 08:01; Admin Dose 1 TAB; Start 05/30/18 at 21:00 Simethicone (Mylicon) 80 mg TID PRN PO .GAS; Start 05/30/18 at 11:00 Magnesium Hydroxide (Milk Of Mag) 30 ml BID PRN PO .CONSTIPATION; Start 05/30/18 at 11:00 Magnesium Hydroxide (Milk Of Mag) 30 ml HS PO ; Start 06/01/18 at 21:00 Gabapentin (Neurontin) 300 mg HS PO Last administered on 05/31/18 20:16; Admin Dose 300 MG; Start 05/30/18 at 21:00 Oxycodone HCl (Roxicodone) 15 mg Q4H PRN PO .PAIN Last administered on 06/01/18 13:12; Admin Dose 15 MG; Start 05/30/18 at 11:00 Oxycodone HCl (Roxicodone) 10 mg Q4H PRN PO .PAIN Last administered on 05/30/18 16:45; Admin Dose 10 MG; Start 05/30/18 at 11:00 Oxycodone HCl (Roxicodone) 5 mg Q4H PRN PO .PAIN; Start 05/30/18 at 11:00 Hydromorphone HCl (Dilaudid) 1 mg Q4H PRN IV .BREAKTHROUGH PAIN Last administered on 06/01/18 05:43; Admin Dose 1 MG; Start 05/30/18 at 11:00 Ondansetron HCl (Zofran Inj) 4 mg Q6H PRN IV NAUSEA/VOMITING Last administered on 05/31/18 09:51; Admin Dose 4 MG; Start 05/30/18 at 11:00 Diphenhydramine HCl (Benadryl) 25 mg Q6H PRN IV .PRURITUS; Start 05/30/18 at 11:00 Zolpidem Tartrate (Ambien) 10 mg HS PRN PO .INSOMNIA; Start 05/30/18 at 11:00 IV Flush (NS 3 ml) 3 ml per protocol IV ; Start 05/30/18 at 11:00 Aspirin (Ecotrin) 325 mg DAILY PO Last administered on 06/01/18 08:01; Admin Dose 325 MG; Start 05/31/18 at 09:00 Enoxaparin Sodium (Lovenox) 30 mg BID SC Last administered on 06/01/18 08:06; Admin Dose 30 MG; Start 05/30/18 at 21:00 Albuterol/ Ipratropium (Duoneb) 3 ml Q3HWA RESP THERAPY HHN ; Start 06/01/18 at 14:00; Status UNV Assessment/Plan Assessment/Plan (Daily) IMP: 1. Hypoxemic/Hypercapnic Respiratory Insufficiency--in an obese female with definite BRAXTON (and possible OHS; though respiratory acidosis appears more acute than chronic). Also a significant bronchospastic component on examination. RECS: 1. Increase alb/atrovent HHNs to Q3 hours 2. Start short course of solumedrol IV and azithro 3. Cont. aggressive incentive spirometry 4. DVT prophylaxis ANABEL FRIED MD Jun 01, 2018 13:36
[2018-06-01 14:20] VITALS: BP 120/55; PULSE 88; RESP 12
[2018-06-01] MEDS: METHYLPREDNISOLONE 40 MG INJ IV SCH ×2 (15:33→21:11)
[2018-06-01] MEDS: AZITHROMYCIN 250 MG in SOD CHLORIDE 0.9% 250 ML IVPB SCH (15:33)
[2018-06-01 20:00] VITALS: BP 136/69; PULSE 89; RESP 20
[2018-06-01] MEDS: traZODone 50 MG TAB PO SCH (21:16)
[2018-06-01] MEDS: AMITRIPTYLINE 25 MG TAB PO SCH (21:16)
[2018-06-01] MEDS: GABAPENTIN 300 MG CAP PO SCH (21:16)
[2018-06-01] MEDS: MAGNESIUM HYDROXIDE 30ML CUP PO SCH (21:17)
[2018-06-02 04:03] VITALS: BP 134/63; PULSE 80; RESP 20
[2018-06-02] MEDS: HYDROmorphONE 1 MG/ML SYG IV PRN ×2 (04:05→09:14)
[2018-06-02] MEDS: METHYLPREDNISOLONE 40 MG INJ IV SCH ×3 (06:00→21:10)
[2018-06-02] MEDS: oxyCODONE 5 MG TAB PO PRN ×3 (06:00→21:15)
[2018-06-02 07:44] VITALS: BP 125/60; PULSE 78; RESP 16
--- NOTE | 2018-06-02 08:23 | PN ---
Date/Time of Note Date/Time of Note DATE: 06/02/18 TIME: 08:20 Subjective Awake and alert this morning. Some of the pain has abated and she is able to do deep inspirometry to about 2500. She has no fevers chills sweats. She has good function of the leg. Objective Vitals Vital Signs Date Temp Pulse Resp B/P (MAP) Pulse Ox O2 O2 Flow FiO2 Time Delivery Rate 06/02/18 98.3 78 16 125/60 100 Nasal 07:44 (81) Cannula 06/02/18 3.0 02:39 06/01/18 09:24 Intake and Output 06/01/18 06/01/18 06/02/18 1515:00 23:00 07:00 IntakeIntake Total 600 ml 550 ml OutputOutput Total 600 ml BalanceBalance 0 ml 550 ml Her wound is clean and dry. There are no areas of drainage this morning. She is neurologically intact. There are no signs of DVT in either extremity. Results Result Diagram: 06/01/18 0504 06/01/18 1051 Medications Medications Current Medications Amitriptyline HCl (Elavil) 25 mg QHS PO Last administered on 06/01/18at 21:16; Admin Dose 25 MG; Start 05/30/18 at 21:00 Trazodone HCl (Desyrel) 50 mg QHS PO Last administered on 06/01/18 21:16; Admin Dose 50 MG; Start 05/30/18 at 21:00 Senna/Docusate Sodium (Senokot-S) 1 tab BID PO Last administered on 06/01/18 21:16; Admin Dose 1 TAB; Start 05/30/18 at 21:00 Simethicone (Mylicon) 80 mg TID PRN PO .GAS; Start 05/30/18 at 11:00 Magnesium Hydroxide (Milk Of Mag) 30 ml BID PRN PO .CONSTIPATION; Start 05/30/18 at 11:00 Magnesium Hydroxide (Milk Of Mag) 30 ml HS PO Last administered on 06/01/18 21:17; Admin Dose 30 ML; Start 06/01/18 at 21:00 Gabapentin (Neurontin) 300 mg HS PO Last administered on 06/01/18at 21:16; Admin Dose 300 MG; Start 05/30/18 at 21:00 Oxycodone HCl (Roxicodone) 15 mg Q4H PRN PO .PAIN Last administered on 06/01/18 18:20; Admin Dose 15 MG; Start 05/30/18 at 11:00 Oxycodone HCl (Roxicodone) 10 mg Q4H PRN PO .PAIN Last administered on 06/02/18 06:00; Admin Dose 10 MG; Start 05/30/18 at 11:00 Oxycodone HCl (Roxicodone) 5 mg Q4H PRN PO .PAIN; Start 05/30/18 at 11:00 Hydromorphone HCl (Dilaudid) 1 mg Q4H PRN IV .BREAKTHROUGH PAIN Last administered on 06/02/18 04:05; Admin Dose 1 MG; Start 05/30/18 at 11:00 Ondansetron HCl (Zofran Inj) 4 mg Q6H PRN IV NAUSEA/VOMITING Last administered on 05/31/18 09:51; Admin Dose 4 MG; Start 05/30/18 at 11:00 Diphenhydramine HCl (Benadryl) 25 mg Q6H PRN IV .PRURITUS; Start 05/30/18 at 11:00 Zolpidem Tartrate (Ambien) 10 mg HS PRN PO .INSOMNIA; Start 05/30/18 at 11:00 IV Flush (NS 3 ml) 3 ml per protocol IV ; Start 05/30/18 at 11:00 Aspirin (Ecotrin) 325 mg DAILY PO Last administered on 06/01/18 08:01; Admin Dose 325 MG; Start 05/31/18 at 09:00 Enoxaparin Sodium (Lovenox) 30 mg BID SC Last administered on 06/01/18 21:15; Admin Dose 30 MG; Start 05/30/18 at 21:00 Albuterol/ Ipratropium (Duoneb) 3 ml Q3HWA RESP THERAPY HHN Last administered on 06/01/18 19:34; Admin Dose 3 ML; Start 06/01/18 at 14:00 Methylprednisolone Sodium Succinate (Solu-Medrol) 40 mg Q8 IV Last administered on 06/02/18 06:00; Admin Dose 40 MG; Start 06/01/18 at 14:00 Azithromycin 250 mg/Sodium Chloride 250 ml @ 250 mls/hr Q24H IVPB Last administered on 06/01/18at 15:33; Admin Dose 250 MLS/HR; Start 06/01/18 at 14:30 VTE Prophylaxis Risk score (from [facility] [place])>0 risk: 8 SCD applied (from [facility] [place]): Yes Lines/Catheters IV Catheter Type: Saline Lock Lobo in Place: No Assessment/Plan Hospital Course Admitted and underwent uncomplicated procedure. She was cleared and discharged after clearance by physical therapy as well as clearance by pulmonology following a bout of atelectasis that precluded her from being discharged immediately postoperatively. Assessment/Plan Assessment: Status post open abductor repair with long atelectasis Plan: We will continue to mobilize her in physical therapy. Discharge will be pending clearance by the pulmonology physician consultation. MICHAEL FERRO MD Jun 02, 2018 08:23
[2018-06-02] MEDS: ALBUTEROL/IPRATROPIUM (NEB) 3 ML AMP HHN SCH ×5 (08:53→20:12)
[2018-06-02] MEDS: SENNA/DOCUSATE NA (8.6MG/50MG) TAB PO SCH ×2 (09:10→21:05)
[2018-06-02] MEDS: ASPIRIN (EC) 325 MG TAB PO SCH (09:10)
[2018-06-02] MEDS: ENOXAPARIN 30 MG/0.3 ML SYG SC SCH ×2 (09:11→21:08)
--- NOTE | 2018-06-02 12:52 | CONS ---
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 -continue home medications (amitryptyline and trazadone) -continue solumedrol, azithromycin and duoneb per pulmonary. -encouraged use of incentive spirometry Consultation Date/Type/Reason Admit Date/Time Jun 01, 2018 at 08:05 Initial Consult Date Requesting Provider: MICHAEL FERRO MD Date/Time of Note DATE: 06/02/18 TIME: 12:49 24 HR Interval Summary Free Text/Dictation Patient seen and examined at bedside. She was started on abx and steroid by pulmonary. She states dyspnea is slightly better but has productive cough. Exam/Review of Systems Exam Vitals Vital Signs Date Temp Pulse Resp B/P (MAP) Pulse Ox O2 O2 Flow FiO2 Time Delivery Rate 06/02/18 80 20 95 Nasal 3.0 12:11 Cannula 06/02/18 98.3 125/60 07:44 (81) 06/01/18 09:24 Intake and Output 06/01/18 06/01/18 06/02/18 1515:00 23:00 07:00 IntakeIntake Total 600 ml 550 ml OutputOutput Total 600 ml BalanceBalance 0 ml 550 ml Exam General: Comfortable in appearance, not in acute distress. Skin appropriate for ethnicity Eye: Extraocular movements are intact, Normal conjunctiva. HENT: Normocephalic, atraumatic. Respiratory: Respirations are non-labored, Breath sounds are equal, Symmetrical chest wall expansion. b/l expiratory wheeze Cardiovascular: S1, S2. No murmur. No LE edema Gastrointestinal: Soft, Non-tender, Non-distended, Normal bowel sounds. Integumentary: Warm to touch. Neurologic: Alert, Oriented. Cognition and Speech: Speech clear and coherent, Functional cognition intact. Psychiatric: Cooperative, Appropriate mood & affect. Results Result Diagram: 06/01/18 0502 06/01/18 1051 Medications Medication Current Medications Amitriptyline HCl (Elavil) 25 mg QHS PO Last administered on 06/01/18 21:16; Admin Dose 25 MG; Start 05/30/18 at 21:00 Trazodone HCl (Desyrel) 50 mg QHS PO Last administered on 06/01/18 21:16; Admin Dose 50 MG; Start 05/30/18 at 21:00 Senna/Docusate Sodium (Senokot-S) 1 tab BID PO Last administered on 06/02/18 09:10; Admin Dose 1 TAB; Start 05/30/18 at 21:00 Simethicone (Mylicon) 80 mg TID PRN PO .GAS; Start 05/30/18 at 11:00 Magnesium Hydroxide (Milk Of Mag) 30 ml BID PRN PO .CONSTIPATION; Start 05/30/18 at 11:00 Magnesium Hydroxide (Milk Of Mag) 30 ml HS PO Last administered on 06/01/18 21: 17; Admin Dose 30 ML; Start 06/01/18 at 21:00 Gabapentin (Neurontin) 300 mg HS PO Last administered on 06/01/18 21:16; Admin Dose 300 MG; Start 05/30/18 at 21:00 Oxycodone HCl (Roxicodone) 15 mg Q4H PRN PO .PAIN Last administered on 06/01/18 18:20; Admin Dose 15 MG; Start 05/30/18 at 11:00 Oxycodone HCl (Roxicodone) 10 mg Q4H PRN PO .PAIN Last administered on 06/02/18 06:00; Admin Dose 10 MG; Start 05/30/18 at 11:00 Oxycodone HCl (Roxicodone) 5 mg Q4H PRN PO .PAIN; Start 05/30/18 at 11:00 Hydromorphone HCl (Dilaudid) 1 mg Q4H PRN IV .BREAKTHROUGH PAIN Last administered on 06/02/18 09:14; Admin Dose 1 MG; Start 05/30/18 at 11:00 Ondansetron HCl (Zofran Inj) 4 mg Q6H PRN IV NAUSEA/VOMITING Last administered on 05/31/18 09:51; Admin Dose 4 MG; Start 05/30/18 at 11:00 Diphenhydramine HCl (Benadryl) 25 mg Q6H PRN IV .PRURITUS; Start 05/30/18 at 11:00 Zolpidem Tartrate (Ambien) 10 mg HS PRN PO .INSOMNIA; Start 05/30/18 at 11:00 IV Flush (NS 3 ml) 3 ml per protocol IV ; Start 05/30/18 at 11:00 Aspirin (Ecotrin) 325 mg DAILY PO Last administered on 06/02/18at 09:10; Admin Dose 325 MG; Start 05/31/18 at 09:00 Enoxaparin Sodium (Lovenox) 30 mg BID SC Last administered on 06/02/18at 09:11; Admin Dose 30 MG; Start 05/30/18 at 21:00 Albuterol/ Ipratropium (Duoneb) 3 ml Q3HWA RESP THERAPY HHN Last administered on 06/02/18at 12:01; Admin Dose 3 ML; Start 06/01/18 at 14:00 Methylprednisolone Sodium Succinate (Solu-Medrol) 40 mg Q8 IV Last administered on 06/02/18 06:00; Admin Dose 40 MG; Start 06/01/18 at 14:00 Azithromycin 250 mg/Sodium Chloride 250 ml @ 250 mls/hr Q24H IVPB Last adminis tered on 06/01/18at 15:33; Admin Dose 250 MLS/HR; Start 06/01/18 at 14:30 RICHARD MORRISSEY MD Jun 02, 2018 12:52
--- NOTE | 2018-06-02 13:54 | CONS ---
Consult Date/Type/Reason Admit Date/Time Jun 01, 2018 at 08:05 Initial Consult Date Type of Consultation: Pulm Requesting Provider: MICHAEL FERRO MD Date/Time of Note DATE: 06/02/18 TIME: 13:53 Subjective A bit better today. Less dyspnea. Objective Vitals Vital Signs Date Temp Pulse Resp B/P (MAP) Pulse Ox O2 O2 Flow FiO2 Time Delivery Rate 06/02/18 80 20 95 Nasal 3.0 12:11 Cannula 06/02/18 98.3 125/60 07:44 (81) 06/01/18 09:24 Intake and Output 06/01/18 06/01/18 06/02/18 1515:00 23:00 07:00 IntakeIntake Total 600 ml 550 ml OutputOutput Total 600 ml BalanceBalance 0 ml 550 ml Exam HEENT: Neck supple; no JVD; no LAD CVS: RRR, S1 and S2 CHEST: Diffuse wheezing b/l ABD: Obese, soft, NT, + BS EXT: No c/c/e Results/Medications Result Diagram: 06/01/18 0504 06/01/18 1051 Home Meds Reported Medications Trazodone Hcl* (Trazodone Hcl*) 50 Mg Tablet, 50 MG PO QHS, #30 TAB 05/30/18 Tramadol Hcl* (Ultram*) 50 Mg Tablet, 50 MG PO Q8 PRN for PAIN, TAB 05/30/18 Amitriptyline Hcl* (Amitriptyline Hcl*) 25 Mg Tablet, 25 MG PO QHS, #30 TAB 05/30/18 Medications Current Medications Amitriptyline HCl (Elavil) 25 mg QHS PO Last administered on 06/01/18at 21:16; Admin Dose 25 MG; Start 05/30/18 at 21:00 Trazodone HCl (Desyrel) 50 mg QHS PO Last administered on 06/01/18at 21:16; Admin Dose 50 MG; Start 05/30/18 at 21:00 Senna/Docusate Sodium (Senokot-S) 1 tab BID PO Last administered on 06/02/18at 09:10; Admin Dose 1 TAB; Start 05/30/18 at 21:00 Simethicone (Mylicon) 80 mg TID PRN PO .GAS; Start 05/30/18 at 11:00 Magnesium Hydroxide (Milk Of Mag) 30 ml BID PRN PO .CONSTIPATION; Start 05/30/18 at 11:00 Magnesium Hydroxide (Milk Of Mag) 30 ml HS PO Last administered on 06/01/18 21:17; Admin Dose 30 ML; Start 06/01/18 at 21:00 Gabapentin (Neurontin) 300 mg HS PO Last administered on 06/01/18 21:16; Admin Dose 300 MG; Start 05/30/18 at 21:00 Oxycodone HCl (Roxicodone) 15 mg Q4H PRN PO .PAIN Last administered on 06/01/18 18:20; Admin Dose 15 MG; Start 05/30/18 at 11:00 Oxycodone HCl (Roxicodone) 10 mg Q4H PRN PO .PAIN Last administered on 06/02/18 06:00; Admin Dose 10 MG; Start 05/30/18 at 11:00 Oxycodone HCl (Roxicodone) 5 mg Q4H PRN PO .PAIN; Start 05/30/18 at 11:00 Hydromorphone HCl (Dilaudid) 1 mg Q4H PRN IV .BREAKTHROUGH PAIN Last administered on 06/02/18 09:14; Admin Dose 1 MG; Start 05/30/18 at 11:00 Ondansetron HCl (Zofran Inj) 4 mg Q6H PRN IV NAUSEA/VOMITING Last administered on 05/31/18 09:51; Admin Dose 4 MG; Start 05/30/18 at 11:00 Diphenhydramine HCl (Benadryl) 25 mg Q6H PRN IV .PRURITUS; Start 05/30/18 at 11:00 Zolpidem Tartrate (Ambien) 10 mg HS PRN PO .INSOMNIA; Start 05/30/18 at 11:00 IV Flush (NS 3 ml) 3 ml per protocol IV ; Start 05/30/18 at 11:00 Aspirin (Ecotrin) 325 mg DAILY PO Last administered on 06/02/18 09:10; Admin Dose 325 MG; Start 05/31/18 at 09:00 Enoxaparin Sodium (Lovenox) 30 mg BID SC Last administered on 06/02/18 09:11; Admin Dose 30 MG; Start 05/30/18 at 21:00 Albuterol/ Ipratropium (Duoneb) 3 ml Q3HWA RESP THERAPY HHN Last administered on 06/02/18at 12:01; Admin Dose 3 ML; Start 06/01/18 at 14:00 Methylprednisolone Sodium Succinate (Solu-Medrol) 40 mg Q8 IV Last administered on 06/02/18at 06:00; Admin Dose 40 MG; Start 06/01/18 at 14:00 Azithromycin 250 mg/Sodium Chloride 250 ml @ 250 mls/hr Q24H IVPB Last administered on 06/01/18at 15:33; Admin Dose 250 MLS/HR; Start 06/01/18 at 14:30 Assessment/Plan Assessment/Plan (Daily) Results/Medications Result Diagram: 06/01/18 0504 06/01/18 1051 IMPL 1. Hypoxemic/Hypercapnic Respiratory Insufficiency--in an obese female with definite BRAXTON (and possible OHS; though respiratory acidosis appears more acute than chronic). Also a significant bronchospastic component on examination. RECS: 1. Cont alb/atrovent HHNs to Q3 hours 2. Continue solumedrol IV and azithro; taper to prednisone tomorrow. 3. Cont. aggressive incentive spirometry 4. DVT prophylaxis 5. Suspect will be ready for d/c in 1-2 days ANABEL RFIED MD Jun 02, 2018 13:54
[2018-06-02 15:16] VITALS: BP 141/66; PULSE 107; RESP 16
[2018-06-02] MEDS: AZITHROMYCIN 250 MG in SOD CHLORIDE 0.9% 250 ML IVPB SCH (16:05)
[2018-06-02 20:37] VITALS: BP 134/64; PULSE 95; RESP 18
[2018-06-02] MEDS: AMITRIPTYLINE 25 MG TAB PO SCH (21:05)
[2018-06-02] MEDS: traZODone 50 MG TAB PO SCH (21:05)
[2018-06-02] MEDS: MAGNESIUM HYDROXIDE 30ML CUP PO SCH (21:05)
[2018-06-02] MEDS: GABAPENTIN 300 MG CAP PO SCH (21:06)
[2018-06-03] MEDS: HYDROmorphONE 1 MG/ML SYG IV PRN (00:57)
[2018-06-03 02:37] VITALS: BP 133/68; PULSE 75; RESP 20
[2018-06-03] MEDS: METHYLPREDNISOLONE 40 MG INJ IV SCH ×2 (05:50→14:37)
[2018-06-03] MEDS: oxyCODONE 5 MG TAB PO PRN ×3 (05:54→21:17)
[2018-06-03] MEDS: ALBUTEROL/IPRATROPIUM (NEB) 3 ML AMP HHN SCH ×5 (07:59→20:56)
--- NOTE | 2018-06-03 08:05 | CONS ---
Consult Date/Type/Reason Admit Date/Time Jun 01, 2018 at 08:05 Initial Consult Date 05/23/2018 Type of Consultation: internal medicine Reason for Consultation medical f/u and management Requesting Provider: MICHAEL FERRO MD Date/Time of Note DATE: 06/03/18 TIME: 07:55 Subjective still coughing but feeling a little better every day Objective Vitals Vital Signs Date Temp Pulse Resp B/P (MAP) Pulse Ox O2 O2 Flow FiO2 Time Delivery Rate 06/03/18 3.0 02:40 06/03/18 98.1 75 20 133/68 95 02:37 (89) 06/02/18 Nasal 20:12 Cannula 06/01/18 09:24 Intake and Output 06/02/18 06/02/18 06/03/18 1515:00 23:00 07:00 IntakeIntake Total 300 ml 600 ml BalanceBalance 300 ml 600 ml Exam vital signs stable HEENT O2 per nasal cannula at 3Liters chest relatively clear heart regular rhythm abdomen soft Results/Medications Result Diagram: 06/01/18 0504 06/01/18 1051 Home Meds Reported Medications Trazodone Hcl* (Trazodone Hcl*) 50 Mg Tablet, 50 MG PO QHS, #30 TAB 05/30/18 Tramadol Hcl* (Ultram*) 50 Mg Tablet, 50 MG PO Q8 PRN for PAIN, TAB 05/30/18 Amitriptyline Hcl* (Amitriptyline Hcl*) 25 Mg Tablet, 25 MG PO QHS, #30 TAB 05/30/18 Medications Current Medications Amitriptyline HCl (Elavil) 25 mg QHS PO Last administered on 06/02/18at 21:05; Admin Dose 25 MG; Start 05/30/18 at 21:00 Trazodone HCl (Desyrel) 50 mg QHS PO Last administered on 06/02/18at 21:05; Admin Dose 50 MG; Start 05/30/18 at 21:00 Senna/Docusate Sodium (Senokot-S) 1 tab BID PO Last administered on 06/02/18at 21:05; Admin Dose 1 TAB; Start 05/30/18 at 21:00 Simethicone (Mylicon) 80 mg TID PRN PO .GAS; Start 05/30/18 at 11:00 Magnesium Hydroxide (Milk Of Mag) 30 ml BID PRN PO .CONSTIPATION; Start 05/30/18 at 11:00 Magnesium Hydroxide (Milk Of Mag) 30 ml HS PO Last administered on 06/02/18 21:05; Admin Dose 30 ML; Start 06/01/18 at 21:00 Gabapentin (Neurontin) 300 mg HS PO Last administered on 06/02/18 21:06; Admin Dose 300 MG; Start 05/30/18 at 21:00 Oxycodone HCl (Roxicodone) 15 mg Q4H PRN PO .PAIN Last administered on 06/02/18 21:15; Admin Dose 15 MG; Start 05/30/18 at 11:00 Oxycodone HCl (Roxicodone) 10 mg Q4H PRN PO .PAIN Last administered on 06/03/18 05:54; Admin Dose 10 MG; Start 05/30/18 at 11:00 Oxycodone HCl (Roxicodone) 5 mg Q4H PRN PO .PAIN; Start 05/30/18 at 11:00 Hydromorphone HCl (Dilaudid) 1 mg Q4H PRN IV .BREAKTHROUGH PAIN Last administered on 06/03/18 00:57; Admin Dose 1 MG; Start 05/30/18 at 11:00 Ondansetron HCl (Zofran Inj) 4 mg Q6H PRN IV NAUSEA/VOMITING Last administered on 05/31/18 09:51; Admin Dose 4 MG; Start 05/30/18 at 11:00 Diphenhydramine HCl (Benadryl) 25 mg Q6H PRN IV .PRURITUS; Start 05/30/18 at 11:00 Zolpidem Tartrate (Ambien) 10 mg HS PRN PO .INSOMNIA; Start 05/30/18 at 11:00 IV Flush (NS 3 ml) 3 ml per protocol IV ; Start 05/30/18 at 11:00 Aspirin (Ecotrin) 325 mg DAILY PO Last administered on 06/02/18 09:10; Admin Dose 325 MG; Start 05/31/18 at 09:00 Enoxaparin Sodium (Lovenox) 30 mg BID SC Last administered on 06/02/18 21:08; Admin Dose 30 MG; Start 05/30/18 at 21:00 Albuterol/ Ipratropium (Duoneb) 3 ml Q3HWA RESP THERAPY HHN Last administered on 06/02/18at 20:12; Admin Dose 3 ML; Start 06/01/18 at 14:00 Methylprednisolone Sodium Succinate (Solu-Medrol) 40 mg Q8 IV Last administered on 06/03/18at 05:50; Admin Dose 40 MG; Start 06/01/18 at 14:00 Azithromycin 250 mg/Sodium Chloride 250 ml @ 250 mls/hr Q24H IVPB Last administered on 06/02/18at 16:05; Admin Dose 250 MLS/HR; Start 06/01/18 at 14:30 Imaging chest X-ray yesterday unchanged Assessment/Plan Hospital Course (Demo Recall) left hip and sciatic nerve pain pre-op ambulating B.I.D. without great difficulty currently on antibiotics ,steroids and HH Nebulizer O2 sat improving somewhat. Will discuss with Pulmonary. Assessment/Plan (Daily) will continue present treatment .Will discuss with pulmonary re.plan and medical stability Cont'd Hospitalization Reason: still not saturating on room air and symptomatic re cough. JAKI VILLAR MD Jun 03, 2018 08:05
[2018-06-03 08:17] VITALS: BP 134/63; PULSE 74; RESP 19
[2018-06-03] MEDS: ASPIRIN (EC) 325 MG TAB PO SCH (08:47)
[2018-06-03] MEDS: SENNA/DOCUSATE NA (8.6MG/50MG) TAB PO SCH ×2 (08:48→21:09)
[2018-06-03] MEDS: ENOXAPARIN 30 MG/0.3 ML SYG SC SCH ×2 (08:50→21:10)
[2018-06-03] MEDS: AZITHROMYCIN 250 MG in SOD CHLORIDE 0.9% 250 ML IVPB SCH (14:37)
[2018-06-03 15:18] VITALS: BP 150/77; PULSE 84; RESP 18
--- NOTE | 2018-06-03 15:27 | CONS ---
Consult Date/Type/Reason Admit Date/Time Jun 01, 2018 at 08:05 Initial Consult Date Type of Consult Pulmonary Requesting Provider: MICHAEL FERRO MD Date/Time of Note DATE: 06/03/18 TIME: 15:25 Subjective Slowly improving. Still requiring supplemental O2. No respiratory distress at present. Objective Vital Signs Date Temp Pulse Resp B/P (MAP) Pulse Ox O2 O2 Flow FiO2 Time Delivery Rate 06/03/18 97.3 84 18 150/77 92 Room Air 15:18 (101) 06/03/18 3.0 12:00 06/01/18 09:24 Intake and Output 06/02/18 06/02/18 06/03/18 1515:00 23:00 07:00 IntakeIntake Total 300 ml 600 ml BalanceBalance 300 ml 600 ml Exam GENERAL: VITAL SIGNS: per chart NECK: Supple. No JVD or lymphadenopathy. CARDIAC EXAM: S1, S2. No added sounds or murmurs. CHEST: Occasional expiratory wheezing ABDOMEN: Soft, nontender. No guarding or rebound. EXTREMITIES: No cyanosis, clubbing or edema. NEUROLOGIC: Generalized weakness. No focal deficits. Morbidly obese young lady comfortable at rest Results/Medications Result Diagram: 06/03/18 1018 06/03/18 1018 Results 24 hrs Laboratory Tests Test 06/03/18 10:18 White Blood Count 12.2 #H Red Blood Count 4.34 Hemoglobin 12.4 Hematocrit 38.7 Mean Corpuscular Volume 89.2 Mean Corpuscular Hemoglobin 28.6 L Mean Corpuscular Hemoglobin Concent 32.0 Red Cell Distribution Width 13.2 Platelet Count 245 Mean Platelet Volume 9.4 Immature Granulocytes % 1.500 H Neutrophils % 84.0 H Lymphocytes % 8.9 L Monocytes % 5.5 Eosinophils % 0.0 Basophils % 0.1 Nucleated Red Blood Cells % 0.0 Immature Granulocytes # 0.180 H Neutrophils # 10.2 H Lymphocytes # 1.1 Monocytes # 0.7 Eosinophils # 0.0 Basophils # 0.0 Nucleated Red Blood Cells # 0.0 Sodium Level 140 Potassium Level 4.2 Chloride Level 102 Carbon Dioxide Level 29 Anion Gap 9 Blood Urea Nitrogen 17 Creatinine 0.57 Est Glomerular Filtrat Rate mL/min > 60 Glucose Level 290 H Calcium Level 8.7 Total Bilirubin 0.1 L Direct Bilirubin 0.00 Indirect Bilirubin 0.1 Aspartate Amino Transf (AST/SGOT) 27 Alanine Aminotransferase (ALT/SGPT) 30 Alkaline Phosphatase 66 Total Protein 6.5 Albumin 3.7 Globulin 2.80 Albumin/Globulin Ratio 1.32 Medications Current Medications Amitriptyline HCl (Elavil) 25 mg QHS PO Last administered on 06/02/18 21:05; Admin Dose 25 MG; Start 05/30/18 at 21:00 Trazodone HCl (Desyrel) 50 mg QHS PO Last administered on 06/02/18 21:05; Admin Dose 50 MG; Start 05/30/18 at 21:00 Senna/Docusate Sodium (Senokot-S) 1 tab BID PO Last administered on 06/03/18 08:48; Admin Dose 1 TAB; Start 05/30/18 at 21:00 Simethicone (Mylicon) 80 mg TID PRN PO .GAS; Start 05/30/18 at 11:00 Magnesium Hydroxide (Milk Of Mag) 30 ml BID PRN PO .CONSTIPATION; Start 05/30/18 at 11:00 Magnesium Hydroxide (Milk Of Mag) 30 ml HS PO Last administered on 06/02/18 21:05; Admin Dose 30 ML; Start 06/01/18 at 21:00 Gabapentin (Neurontin) 300 mg HS PO Last administered on 06/02/18 21:06; Admin Dose 300 MG; Start 05/30/18 at 21:00 Oxycodone HCl (Roxicodone) 15 mg Q4H PRN PO .PAIN Last administered on 06/02/18 21:15; Admin Dose 15 MG; Start 05/30/18 at 11:00 Oxycodone HCl (Roxicodone) 10 mg Q4H PRN PO .PAIN Last administered on 06/03/18 14:49; Admin Dose 10 MG; Start 05/30/18 at 11:00 Oxycodone HCl (Roxicodone) 5 mg Q4H PRN PO .PAIN; Start 05/30/18 at 11:00 Hydromorphone HCl (Dilaudid) 1 mg Q4H PRN IV .BREAKTHROUGH PAIN Last administered on 06/03/18 00:57; Admin Dose 1 MG; Start 05/30/18 at 11:00 Ondansetron HCl (Zofran Inj) 4 mg Q6H PRN IV NAUSEA/VOMITING Last administered on 05/31/18 09:51; Admin Dose 4 MG; Start 05/30/18 at 11:00 Diphenhydramine HCl (Benadryl) 25 mg Q6H PRN IV .PRURITUS; Start 05/30/18 at 11:00 Zolpidem Tartrate (Ambien) 10 mg HS PRN PO .INSOMNIA; Start 05/30/18 at 11:00 IV Flush (NS 3 ml) 3 ml per protocol IV ; Start 05/30/18 at 11:00 Aspirin (Ecotrin) 325 mg DAILY PO Last administered on 06/03/18 08:47; Admin Dose 325 MG; Start 05/31/18 at 09:00 Enoxaparin Sodium (Lovenox) 30 mg BID SC Last administered on 06/03/18 08:50; Admin Dose 30 MG; Start 05/30/18 at 21:00 Albuterol/ Ipratropium (Duoneb) 3 ml Q3HWA RESP THERAPY HHN Last administered on 06/03/18 11:56; Admin Dose 3 ML; Start 06/01/18 at 14:00 Methylprednisolone Sodium Succinate (Solu-Medrol) 40 mg Q8 IV Last administered on 06/03/18 14:37; Admin Dose 40 MG; Start 06/01/18 at 14:00 Azithromycin 250 mg/Sodium Chloride 250 ml @ 250 mls/hr Q24H IVPB Last administered on 06/03/18 14:37; Admin Dose 250 MLS/HR; Start 06/01/18 at 14:30 Assessment/Plan Hospital Course (Demo Recall) IMPL 1. Hypoxemic/Hypercapnic Respiratory Insufficiency--in an obese female with definite BRAXTON (and possible OHS; though respiratory acidosis appears more acute than chronic). Also a significant bronchospastic component on examination. Clinically improving RECS: 1. Cont alb/atrovent HHNs to Q3 hours 2. Prednisone taper 3. Cont. aggressive incentive spirometry 4. DVT prophylaxis 5. Encourage out of bed per surgery [facility] COSTA MD[facility] Jun 03, 2018 15:27
[2018-06-03 19:46] VITALS: BP 145/76; PULSE 86; RESP 20
[2018-06-03] MEDS: GABAPENTIN 300 MG CAP PO SCH (21:09)
[2018-06-03] MEDS: traZODone 50 MG TAB PO SCH (21:09)
[2018-06-03] MEDS: AMITRIPTYLINE 25 MG TAB PO SCH (21:09)
[2018-06-03] MEDS: MAGNESIUM HYDROXIDE 30ML CUP PO SCH (21:09)
[2018-06-04 02:02] VITALS: BP 140/67; PULSE 79; RESP 18
--- NOTE | 2018-06-04 05:59 | PN ---
Date/Time of Note Date/Time of Note DATE: 06/04/18 TIME: 05:57 Subjective Patient is awake and alert. She is still on O2 via nasal cannula. The pulmonary notes are noted. Overall, she is ambulating well. Objective Vitals Vital Signs Date Temp Pulse Resp B/P (MAP) Pulse Ox O2 O2 Flow FiO2 Time Delivery Rate 06/04/18 3.0 03:33 06/04/18 98.1 79 18 140/67 94 Nasal 02:02 (91) Cannula 06/01/18 09:24 Intake and Output 06/03/18 06/03/18 06/04/18 1515:00 23:00 07:00 IntakeIntake Total 400 ml 750 ml 240 ml BalanceBalance 400 ml 750 ml 240 ml Her wound is clean and dry. She is neurologically intact. She does not have any signs of DVT. Results Result Diagram: 06/03/18 1018 06/03/18 1018 Medications Medications Current Medications Amitriptyline HCl (Elavil) 25 mg QHS PO Last administered on 06/03/18 21:09; Admin Dose 25 MG; Start 05/30/18 at 21:00 Trazodone HCl (Desyrel) 50 mg QHS PO Last administered on 06/03/18 21:09; Admin Dose 50 MG; Start 05/30/18 at 21:00 Senna/Docusate Sodium (Senokot-S) 1 tab BID PO Last administered on 06/03/18 21:09; Admin Dose 1 TAB; Start 05/30/18 at 21:00 Simethicone (Mylicon) 80 mg TID PRN PO .GAS; Start 05/30/18 at 11:00 Magnesium Hydroxide (Milk Of Mag) 30 ml BID PRN PO .CONSTIPATION; Start 05/30/18 at 11:00 Magnesium Hydroxide (Milk Of Mag) 30 ml HS PO Last administered on 06/03/18 21:09; Admin Dose 30 ML; Start 06/01/18 at 21:00 Gabapentin (Neurontin) 300 mg HS PO Last administered on 06/03/18 21:09; Admin Dose 300 MG; Start 05/30/18 at 21:00 Oxycodone HCl (Roxicodone) 15 mg Q4H PRN PO .PAIN Last administered on 06/03/18 21:17; Admin Dose 15 MG; Start 05/30/18 at 11:00 Oxycodone HCl (Roxicodone) 10 mg Q4H PRN PO .PAIN Last administered on 06/03/18 14:49; Admin Dose 10 MG; Start 05/30/18 at 11:00 Oxycodone HCl (Roxicodone) 5 mg Q4H PRN PO .PAIN; Start 05/30/18 at 11:00 Hydromorphone HCl (Dilaudid) 1 mg Q4H PRN IV .BREAKTHROUGH PAIN Last administered on 06/03/18 00:57; Admin Dose 1 MG; Start 05/30/18 at 11:00 Ondansetron HCl (Zofran Inj) 4 mg Q6H PRN IV NAUSEA/VOMITING Last administered on 05/31/18 09:51; Admin Dose 4 MG; Start 05/30/18 at 11:00 Diphenhydramine HCl (Benadryl) 25 mg Q6H PRN IV .PRURITUS; Start 05/30/18 at 11:00 Zolpidem Tartrate (Ambien) 10 mg HS PRN PO .INSOMNIA; Start 05/30/18 at 11:00 IV Flush (NS 3 ml) 3 ml per protocol IV ; Start 05/30/18 at 11:00 Aspirin (Ecotrin) 325 mg DAILY PO Last administered on 06/03/18 08:47; Admin Dose 325 MG; Start 05/31/18 at 09:00 Enoxaparin Sodium (Lovenox) 30 mg BID SC Last administered on 06/03/18 21:10; Admin Dose 30 MG; Start 05/30/18 at 21:00 Albuterol/ Ipratropium (Duoneb) 3 ml Q3HWA RESP THERAPY HHN Last administered on 06/03/18 20:56; Admin Dose 3 ML; Start 06/01/18 at 14:00 Azithromycin 250 mg/Sodium Chloride 250 ml @ 250 mls/hr Q24H IVPB Last administered on 06/03/18 14:37; Admin Dose 250 MLS/HR; Start 06/01/18 at 14:30 Prednisone (Prednisone) 40 mg DAILY PO ; Start 06/04/18 at 09:00 VTE Prophylaxis Risk score (from Nsg)>0 risk: 2 SCD applied (from Nsg): Yes Lines/Catheters IV Catheter Type: Saline Lock Lobo in Place: No Assessment/Plan Hospital Course Admitted and underwent uncomplicated procedure. She was cleared and discharged after clearance by physical therapy as well as clearance by pulmonology following a bout of atelectasis that precluded her from being discharged immediately postoperatively. Assessment/Plan Assessment: Status post abductor tendon repair with pulmonary complications Plan: I will await recommendations per pulmonary. From my perspective, she is able to be discharged home. MICHAEL FERRO MD Jun 04, 2018 05:59
[2018-06-04] MEDS ORDERED: CEPASTAT LOZENGE MT PRN (07:00)
[2018-06-04] MEDS: ALBUTEROL/IPRATROPIUM (NEB) 3 ML AMP HHN SCH ×5 (07:51→19:51)
[2018-06-04 08:00] VITALS: BP 131/72; PULSE 82; RESP 19
--- NOTE | 2018-06-04 09:04 | CONS ---
Consult Date/Type/Reason Admit Date/Time Jun 01, 2018 at 08:05 Initial Consult Date 05/23/2018 Type of Consultation: internal medicine Reason for Consultation medical f/u and management Requesting Provider: MICHAEL FERRO MD Date/Time of Note DATE: 06/04/18 TIME: 08:55 Subjective had a better night ambulating well Objective Vitals Vital Signs Date Temp Pulse Resp B/P (MAP) Pulse Ox O2 O2 Flow FiO2 Time Delivery Rate 06/04/18 82 14 94 Nasal 3.0 07:51 Cannula 06/04/18 98.1 140/67 02:02 (91) 06/01/18 09:24 Intake and Output 06/03/18 06/03/18 06/04/18 1515:00 23:00 07:00 IntakeIntake Total 400 ml 750 ml 240 ml BalanceBalance 400 ml 750 ml 240 ml Exam vital signs stable HEENT negative lungs relatively clear heart regular rhythm abdomen soft Results/Medications Result Diagram: 06/03/18 1018 06/04/18 0443 Results 24 hrs Laboratory Tests Test 06/03/18 10:18 06/04/18 04:43 White Blood Count 12.2 #H Red Blood Count 4.34 Hemoglobin 12.4 Hematocrit 38.7 Mean Corpuscular Volume 89.2 Mean Corpuscular Hemoglobin 28.6 L Mean Corpuscular Hemoglobin Concent 32.0 Red Cell Distribution Width 13.2 Platelet Count 245 Mean Platelet Volume 9.4 Immature Granulocytes % 1.500 H Neutrophils % 84.0 H Lymphocytes % 8.9 L Monocytes % 5.5 Eosinophils % 0.0 Basophils % 0.1 Nucleated Red Blood Cells % 0.0 Immature Granulocytes # 0.180 H Neutrophils # 10.2 H Lymphocytes # 1.1 Monocytes # 0.7 Eosinophils # 0.0 Basophils # 0.0 Nucleated Red Blood Cells # 0.0 Sodium Level 140 139 Potassium Level 4.2 4.5 Chloride Level 102 106 Carbon Dioxide Level 29 31 Anion Gap 9 2 L Blood Urea Nitrogen 17 19 Creatinine 0.57 0.57 Est Glomerular Filtrat Rate mL/min > 60 > 60 Glucose Level 290 H 229 H Calcium Level 8.7 8.5 Total Bilirubin 0.1 L Direct Bilirubin 0.00 Indirect Bilirubin 0.1 Aspartate Amino Transf (AST/SGOT) 27 Alanine Aminotransferase (ALT/SGPT) 30 Alkaline Phosphatase 66 Total Protein 6.5 Albumin 3.7 Globulin 2.80 Albumin/Globulin Ratio 1.32 Home Meds Reported Medications Trazodone Hcl* (Trazodone Hcl*) 50 Mg Tablet, 50 MG PO QHS, #30 TAB 05/30/18 Tramadol Hcl* (Ultram*) 50 Mg Tablet, 50 MG PO Q8 PRN for PAIN, TAB 05/30/18 Amitriptyline Hcl* (Amitriptyline Hcl*) 25 Mg Tablet, 25 MG PO QHS, #30 TAB 05/30/18 Medications Current Medications Amitriptyline HCl (Elavil) 25 mg QHS PO Last administered on 06/03/18 21:09; Admin Dose 25 MG; Start 05/30/18 at 21:00 Trazodone HCl (Desyrel) 50 mg QHS PO Last administered on 06/03/18 21:09; Admin Dose 50 MG; Start 05/30/18 at 21:00 Senna/Docusate Sodium (Senokot-S) 1 tab BID PO Last administered on 06/03/18 21:09; Admin Dose 1 TAB; Start 05/30/18 at 21:00 Simethicone (Mylicon) 80 mg TID PRN PO .GAS; Start 05/30/18 at 11:00 Magnesium Hydroxide (Milk Of Mag) 30 ml BID PRN PO .CONSTIPATION; Start 05/30/18 at 11:00 Magnesium Hydroxide (Milk Of Mag) 30 ml HS PO Last administered on 06/03/18 21:09; Admin Dose 30 ML; Start 06/01/18 at 21:00 Gabapentin (Neurontin) 300 mg HS PO Last administered on 06/03/18 21:09; Admin Dose 300 MG; Start 05/30/18 at 21:00 Oxycodone HCl (Roxicodone) 15 mg Q4H PRN PO .PAIN Last administered on 06/03/18 21:17; Admin Dose 15 MG; Start 05/30/18 at 11:00 Oxycodone HCl (Roxicodone) 10 mg Q4H PRN PO .PAIN Last administered on 06/03/18a t 14:49; Admin Dose 10 MG; Start 05/30/18 at 11:00 Oxycodone HCl (Roxicodone) 5 mg Q4H PRN PO .PAIN; Start 05/30/18 at 11:00 Hydromorphone HCl (Dilaudid) 1 mg Q4H PRN IV .BREAKTHROUGH PAIN Last admini stered on 06/03/18at 00:57; Admin Dose 1 MG; Start 05/30/18 at 11:00 Ondansetron HCl (Zofran Inj) 4 mg Q6H PRN IV NAUSEA/VOMITING Last administered on 05/31/18 09:51; Admin Dose 4 MG; Start 05/30/18 at 11:00 Diphenhydramine HCl (Benadryl) 25 mg Q6H PRN IV .PRURITUS; Start 05/30/18 at 11:00 Zolpidem Tartrate (Ambien) 10 mg HS PRN PO .INSOMNIA; Start 05/30/18 at 11:00 IV Flush (NS 3 ml) 3 ml per protocol IV ; Start 05/30/18 at 11:00 Aspirin (Ecotrin) 325 mg DAILY PO Last administered on 06/03/18at 08:47; Admin Dose 325 MG; Start 05/31/18 at 09:00 Enoxaparin Sodium (Lovenox) 30 mg BID SC Last administered on 06/03/18 21:10; Admin Dose 30 MG; Start 05/30/18 at 21:00 Albuterol/ Ipratropium (Duoneb) 3 ml Q3HWA RESP THERAPY HHN Last administered on 06/04/18 07:51; Admin Dose 3 ML; Start 06/01/18 at 14:00 Azithromycin 250 mg/Sodium Chloride 250 ml @ 250 mls/hr Q24H IVPB Last administered on 06/03/18at 14:37; Admin Dose 250 MLS/HR; Start 06/01/18 at 14:30 Prednisone (Prednisone) 40 mg DAILY PO ; Start 06/04/18 at 09:00 Phenol (Cepastat Lozenge) 1 lozenge Q1H PRN MT sore throat; Start 06/04/18 at 07:00 Assessment/Plan Hospital Course (Demo Recall) left hip and sciatic nerve pain pre-op ambulating B.I.D. without great difficulty currently on antibiotics ,steroids and HH Nebulizer O2 sat improving somewhat. Will discuss with Pulmonary. Assessment/Plan (Daily) medically stable glucose elevated 2nd to steroids will start metformin today steroids being if glucose still high will start insulin Await pulmonary clearance re discharge JAKI VILLAR MD Jun 04, 2018 09:04
[2018-06-04] MEDS: SENNA/DOCUSATE NA (8.6MG/50MG) TAB PO SCH ×2 (09:19→20:13)
[2018-06-04] MEDS: predniSONE 20 MG TAB PO SCH (09:19)
[2018-06-04] MEDS: ASPIRIN (EC) 325 MG TAB PO SCH (09:20)
[2018-06-04] MEDS: metFORMIN 500 MG TAB PO SCH ×2 (09:23→17:49)
[2018-06-04] MEDS: ENOXAPARIN 30 MG/0.3 ML SYG SC SCH ×2 (09:23→20:16)
--- NOTE | 2018-06-04 12:29 | CONS ---
Consult Date/Type/Reason Admit Date/Time Jun 01, 2018 at 08:05 Initial Consult Date Type of Consult Pulmonary Requesting Provider: MICHAEL FERRO MD Date/Time of Note DATE: 06/04/18 TIME: 12:28 Subjective Little better today. Less shortness of breath still has moderate pain in left hip. Objective Vital Signs Date Temp Pulse Resp B/P (MAP) Pulse Ox O2 O2 Flow FiO2 Time Delivery Rate 06/04/18 90 14 93 Nasal 3.0 12:16 Cannula 06/04/18 98.1 140/67 02:02 (91) 06/01/18 09:24 Intake and Output 06/03/18 06/03/18 06/04/18 1515:00 23:00 07:00 IntakeIntake Total 400 ml 750 ml 240 ml BalanceBalance 400 ml 750 ml 240 ml Exam GENERAL: VITAL SIGNS: per chart NECK: Supple. No JVD or lymphadenopathy. CARDIAC EXAM: S1, S2. No added sounds or murmurs. CHEST: Occasional expiratory wheezing ABDOMEN: Soft, nontender. No guarding or rebound. EXTREMITIES: No cyanosis, clubbing or edema. NEUROLOGIC: Generalized weakness. No focal deficits. Morbidly obese young lady comfortable at rest Results/Medications Result Diagram: 06/03/18 1018 06/04/18 0443 Results 24 hrs Laboratory Tests Test 06/04/18 04:43 Sodium Level 139 Potassium Level 4.5 Chloride Level 106 Carbon Dioxide Level 31 Anion Gap 2 L Blood Urea Nitrogen 19 Creatinine 0.57 Est Glomerular Filtrat Rate mL/min > 60 Glucose Level 229 H Calcium Level 8.5 Medications Current Medications Amitriptyline HCl (Elavil) 25 mg QHS PO Last administered on 06/03/18at 21:09; Admin Dose 25 MG; Start 05/30/18 at 21:00 Trazodone HCl (Desyrel) 50 mg QHS PO Last administered on 06/03/18at 21:09; Admin Dose 50 MG; Start 05/30/18 at 21:00 Senna/Docusate Sodium (Senokot-S) 1 tab BID PO Last administered on 06/04/18at 09:19; Admin Dose 1 TAB; Start 05/30/18 at 21:00 Simethicone (Mylicon) 80 mg TID PRN PO .GAS; Start 05/30/18 at 11:00 Magnesium Hydroxide (Milk Of Mag) 30 ml BID PRN PO .CONSTIPATION; Start 05/30/18 at 11:00 Magnesium Hydroxide (Milk Of Mag) 30 ml HS PO Last administered on 06/03/18 21:09; Admin Dose 30 ML; Start 06/01/18 at 21:00 Gabapentin (Neurontin) 300 mg HS PO Last administered on 06/03/18 21:09; Admin Dose 300 MG; Start 05/30/18 at 21:00 Oxycodone HCl (Roxicodone) 15 mg Q4H PRN PO .PAIN Last administered on 06/03/18 21:17; Admin Dose 15 MG; Start 05/30/18 at 11:00 Oxycodone HCl (Roxicodone) 10 mg Q4H PRN PO .PAIN Last administered on 06/03/18 14:49; Admin Dose 10 MG; Start 05/30/18 at 11:00 Oxycodone HCl (Roxicodone) 5 mg Q4H PRN PO .PAIN; Start 05/30/18 at 11:00 Hydromorphone HCl (Dilaudid) 1 mg Q4H PRN IV .BREAKTHROUGH PAIN Last administered on 06/03/18 00:57; Admin Dose 1 MG; Start 05/30/18 at 11:00 Ondansetron HCl (Zofran Inj) 4 mg Q6H PRN IV NAUSEA/VOMITING Last administered on 05/31/18 09:51; Admin Dose 4 MG; Start 05/30/18 at 11:00 Diphenhydramine HCl (Benadryl) 25 mg Q6H PRN IV .PRURITUS; Start 05/30/18 at 11:00 Zolpidem Tartrate (Ambien) 10 mg HS PRN PO .INSOMNIA; Start 05/30/18 at 11:00 IV Flush (NS 3 ml) 3 ml per protocol IV ; Start 05/30/18 at 11:00 Aspirin (Ecotrin) 325 mg DAILY PO Last administered on 06/04/18 09:20; Admin Dose 325 MG; Start 05/31/18 at 09:00 Enoxaparin Sodium (Lovenox) 30 mg BID SC Last administered on 06/04/18 09:23; Admin Dose 30 MG; Start 05/30/18 at 21:00 Azithromycin 250 mg/Sodium Chloride 250 ml @ 250 mls/hr Q24H IVPB Last administered on 06/03/18at 14:37; Admin Dose 250 MLS/HR; Start 06/01/18 at 14:30 Prednisone (Prednisone) 40 mg DAILY PO Last administered on 06/04/18at 09:19; Admin Dose 40 MG; Start 06/04/18 at 09:00 Phenol (Cepastat Lozenge) 1 lozenge Q1H PRN MT sore throat; Start 06/04/18 at 07:00 Metformin HCl (Glucophage) 500 mg BID WITH MEALS PO Last administered on 06/04/18 09:23; Admin Dose 500 MG; Start 06/04/18 at 09:30 Albuterol/ Ipratropium (Duoneb) 3 ml Q4HWA RESP THERAPY HHN Last administered on 06/04/18at 12:16; Admin Dose 3 ML; Start 06/04/18 at 13:00 Assessment/Plan Hospital Course (Demo Recall) IMPL 1. Hypoxemic/Hypercapnic Respiratory Insufficiency--in an obese female with definite BRAXTON (and possible OHS; though respiratory acidosis appears more acute than chronic). Also a significant bronchospastic component on examination. Clinically improving RECS: 1. Cont alb/atrovent HHNs to Q4 hours 2. Prednisone taper 3. Cont. aggressive incentive spirometry 4. DVT prophylaxis 5. Encourage out of bed per surgery Discharge planning okay from pulmonary standpoint will need outpatient sleep study TAE COSTA MD, [facility] Jun 04, 2018 12:29
[2018-06-04] MEDS: AZITHROMYCIN 250 MG in SOD CHLORIDE 0.9% 250 ML IVPB SCH (15:00)
[2018-06-04 15:45] VITALS: BP 131/62; PULSE 72; RESP 19
[2018-06-04] MEDS: oxyCODONE 5 MG TAB PO PRN (17:48)
[2018-06-04] MEDS: AMITRIPTYLINE 25 MG TAB PO SCH (20:13)
[2018-06-04] MEDS: MAGNESIUM HYDROXIDE 30ML CUP PO SCH (20:13)
[2018-06-04 20:14] VITALS: BP 138/74; RESP 18
[2018-06-04] MEDS: GABAPENTIN 300 MG CAP PO SCH (20:14)
[2018-06-04] MEDS: traZODone 50 MG TAB PO SCH (20:14)
[2018-06-05 02:15] VITALS: BP 119/66; PULSE 80; RESP 18
--- NOTE | 2018-06-05 05:24 | PN ---
Date/Time of Note Date/Time of Note DATE: 06/05/18 TIME: 05:23 Subjective Doing reasonably well. Breathing better. Objective Vitals Vital Signs Date Temp Pulse Resp B/P (MAP) Pulse Ox O2 O2 Flow FiO2 Time Delivery Rate 06/05/18 1.0 24 02:25 06/05/18 98.2 80 18 119/66 96 02:15 (83) 06/04/18 Nasal 15:45 Cannula Intake and Output 06/04/18 06/04/18 06/05/18 1515:00 23:00 07:00 IntakeIntake Total 200 ml 670 ml 300 ml OutputOutput Total 2 ml BalanceBalance 200 ml 668 ml 300 ml Wound is clean and dry. Neurologically intact. No signs of DVT. Breathing comfortably. Results Result Diagram: 06/03/18 1018 06/04/18 0443 Medications Medications Current Medications Amitriptyline HCl (Elavil) 25 mg QHS PO Last administered on 06/04/18 20:13; Admin Dose 25 MG; Start 05/30/18 at 21:00 Trazodone HCl (Desyrel) 50 mg QHS PO Last administered on 06/04/18 20:14; Admin Dose 50 MG; Start 05/30/18 at 21:00 Senna/Docusate Sodium (Senokot-S) 1 tab BID PO Last administered on 06/04/18 20:13; Admin Dose 1 TAB; Start 05/30/18 at 21:00 Simethicone (Mylicon) 80 mg TID PRN PO .GAS; Start 05/30/18 at 11:00 Magnesium Hydroxide (Milk Of Mag) 30 ml BID PRN PO .CONSTIPATION; Start 05/30/18 at 11:00 Magnesium Hydroxide (Milk Of Mag) 30 ml HS PO Last administered on 06/04/18 20:13; Admin Dose 30 ML; Start 06/01/18 at 21:00 Gabapentin (Neurontin) 300 mg HS PO Last administered on 06/04/18 20:14; Admin Dose 300 MG; Start 05/30/18 at 21:00 Oxycodone HCl (Roxicodone) 15 mg Q4H PRN PO .PAIN Last administered on 06/03/18 21:17; Admin Dose 15 MG; Start 05/30/18 at 11:00 Oxycodone HCl (Roxicodone) 10 mg Q4H PRN PO .PAIN Last administered on 06/04/18 17:48; Admin Dose 10 MG; Start 05/30/18 at 11:00 Oxycodone HCl (Roxicodone) 5 mg Q4H PRN PO .PAIN; Start 05/30/18 at 11:00 Hydromorphone HCl (Dilaudid) 1 mg Q4H PRN IV .BREAKTHROUGH PAIN Last administered on 06/03/18 00:57; Admin Dose 1 MG; Start 05/30/18 at 11:00 Ondansetron HCl (Zofran Inj) 4 mg Q6H PRN IV NAUSEA/VOMITING Last administered on 05/31/18 09:51; Admin Dose 4 MG; Start 05/30/18 at 11:00 Diphenhydramine HCl (Benadryl) 25 mg Q6H PRN IV .PRURITUS; Start 05/30/18 at 11:00 Zolpidem Tartrate (Ambien) 10 mg HS PRN PO .INSOMNIA; Start 05/30/18 at 11:00 IV Flush (NS 3 ml) 3 ml per protocol IV ; Start 05/30/18 at 11:00 Aspirin (Ecotrin) 325 mg DAILY PO Last administered on 06/04/18 09:20; Admin Dose 325 MG; Start 05/31/18 at 09:00 Enoxaparin Sodium (Lovenox) 30 mg BID SC Last administered on 06/04/18 20:16; Admin Dose 30 MG; Start 05/30/18 at 21:00 Azithromycin 250 mg/Sodium Chloride 250 ml @ 250 mls/hr Q24H IVPB Last administered on 06/04/18 15:00; Admin Dose 250 MLS/HR; Start 06/01/18 at 14:30 Prednisone (Prednisone) 40 mg DAILY PO Last administered on 06/04/18 09:19; Admin Dose 40 MG; Start 06/04/18 at 09:00 Phenol (Cepastat Lozenge) 1 lozenge Q1H PRN MT sore throat; Start 06/04/18 at 07:00 Metformin HCl (Glucophage) 500 mg BID WITH MEALS PO Last administered on 06/04/18 17:49; Admin Dose 500 MG; Start 06/04/18 at 09:30 Albuterol/ Ipratropium (Duoneb) 3 ml Q4HWA RESP THERAPY HHN Last administered on 06/04/18at 19:51; Admin Dose 3 ML; Start 06/04/18 at 13:00 VTE [place]axis [place] [facility] [place]: 5 [place]CD applied [place] [facility] [place] Yes Lines/Catheters IV Catheter Type: Saline Lock Lobo in Place: No Assessment/Plan Hospital Course Admitted and underwent uncomplicated procedure. She was cleared and discharged after clearance by physical therapy as well as clearance by pulmonology following a bout of atelectasis that precluded her from being discharged immediately postoperatively. Assessment/Plan Assessment: Status post abductor repair with pulmonary problems Plan: Await clearance by pulmonology for discharge MICHAEL FERRO MD Jun 05, 2018 05:24
[2018-06-05] MEDS: oxyCODONE 5 MG TAB PO PRN ×2 (06:38→12:56)
[2018-06-05 07:47] VITALS: BP 140/85; PULSE 80; RESP 20
[2018-06-05] MEDS: ALBUTEROL/IPRATROPIUM (NEB) 3 ML AMP HHN SCH ×3 (08:17→16:55)
[2018-06-05] MEDS: predniSONE 20 MG TAB PO SCH (08:23)
[2018-06-05] MEDS: metFORMIN 500 MG TAB PO SCH (08:24)
[2018-06-05] MEDS: SENNA/DOCUSATE NA (8.6MG/50MG) TAB PO SCH (08:24)
[2018-06-05] MEDS: ASPIRIN (EC) 325 MG TAB PO SCH (08:24)
[2018-06-05] MEDS: ENOXAPARIN 30 MG/0.3 ML SYG SC SCH (08:27)
--- NOTE | 2018-06-05 14:08 | CONS ---
Consult Date/Type/Reason Admit Date/Time Jun 01, 2018 at 08:05 Initial Consult Date 05/23/2018 Type of Consultation: internal medicine Reason for Consultation medical f/u and management Requesting Provider: MICHAEL FERRO MD Date/Time of Note DATE: 06/05/18 TIME: 14:04 Subjective feeling better today still coughing Objective Vitals Vital Signs Date Temp Pulse Resp B/P (MAP) Pulse Ox O2 O2 Flow FiO2 Time Delivery Rate 06/05/18 87 14 94 21 12:10 06/05/18 Nasal 1.0 08:17 Cannula 06/05/18 97.4 140/85 07:47 (103) Intake and Output 06/04/18 06/04/18 06/05/18 1515:00 23:00 07:00 IntakeIntake Total 200 ml 670 ml 300 ml OutputOutput Total 2 ml BalanceBalance 200 ml 668 ml 300 ml Exam vital signs stable HEENT negative lungs relatively clear heart regular rhythm Results/Medications Result Diagram: 06/03/18 1018 06/04/18 0443 Home Meds Reported Medications Trazodone Hcl* (Trazodone Hcl*) 50 Mg Tablet, 50 MG PO QHS, #30 TAB 05/30/18 Tramadol Hcl* (Ultram*) 50 Mg Tablet, 50 MG PO Q8 PRN for PAIN, TAB 05/30/18 Amitriptyline Hcl* (Amitriptyline Hcl*) 25 Mg Tablet, 25 MG PO QHS, #30 TAB 05/30/18 Medications Current Medications Amitriptyline HCl (Elavil) 25 mg QHS PO Last administered on 06/04/18at 20:13; Admin Dose 25 MG; Start 05/30/18 at 21:00 Trazodone HCl (Desyrel) 50 mg QHS PO Last administered on 06/04/18at 20:14; Admin Dose 50 MG; Start 05/30/18 at 21:00 Senna/Docusate Sodium (Senokot-S) 1 tab BID PO Last administered on 06/05/18at 08:24; Admin Dose 1 TAB; Start 05/30/18 at 21:00 Simethicone (Mylicon) 80 mg TID PRN PO .GAS; Start 05/30/18 at 11:00 Magnesium Hydroxide (Milk Of Mag) 30 ml BID PRN PO .CONSTIPATION; Start 05/30/18 at 11:00 Magnesium Hydroxide (Milk Of Mag) 30 ml HS PO Last administered on 06/04/18 20:13; Admin Dose 30 ML; Start 06/01/18 at 21:00 Gabapentin (Neurontin) 300 mg HS PO Last administered on 06/04/18 20:14; Admin Dose 300 MG; Start 05/30/18 at 21:00 Oxycodone HCl (Roxicodone) 15 mg Q4H PRN PO .PAIN Last administered on 06/05/18 06:38; Admin Dose 15 MG; Start 05/30/18 at 11:00 Oxycodone HCl (Roxicodone) 10 mg Q4H PRN PO .PAIN Last administered on 06/05/18 12:56; Admin Dose 10 MG; Start 05/30/18 at 11:00 Oxycodone HCl (Roxicodone) 5 mg Q4H PRN PO .PAIN; Start 05/30/18 at 11:00 Hydromorphone HCl (Dilaudid) 1 mg Q4H PRN IV .BREAKTHROUGH PAIN Last administered on 06/03/18 00:57; Admin Dose 1 MG; Start 05/30/18 at 11:00 Ondansetron HCl (Zofran Inj) 4 mg Q6H PRN IV NAUSEA/VOMITING Last administered on 05/31/18 09:51; Admin Dose 4 MG; Start 05/30/18 at 11:00 Diphenhydramine HCl (Benadryl) 25 mg Q6H PRN IV .PRURITUS; Start 05/30/18 at 11: 00 Zolpidem Tartrate (Ambien) 10 mg HS PRN PO .INSOMNIA; Start 05/30/18 at 11:00 IV Flush (NS 3 ml) 3 ml per protocol IV ; Start 05/30/18 at 11:00 Aspirin (Ecotrin) 325 mg DAILY PO Last administered on 06/05/18 08:24; Admin Dose 325 MG; Start 05/31/18 at 09:00 Enoxaparin Sodium (Lovenox) 30 mg BID SC Last administered on 06/05/18 08:27; Admin Dose 30 MG; Start 05/30/18 at 21:00 Azithromycin 250 mg/Sodium Chloride 250 ml @ 250 mls/hr Q24H IVPB Last administered on 06/04/18at 15:00; Admin Dose 250 MLS/HR; Start 06/01/18 at 14:30 Prednisone (Prednisone) 40 mg DAILY PO Last administered on 06/05/18at 08:23; Admin Dose 40 MG; Start 06/04/18 at 09:00 Phenol (Cepastat Lozenge) 1 lozenge Q1H PRN MT sore throat; Start 06/04/18 at 07:00 Metformin HCl (Glucophage) 500 mg BID WITH MEALS PO Last administered on 06/05/18at 08:24; Admin Dose 500 MG; Start 06/04/18 at 09:30 Albuterol/ Ipratropium (Duoneb) 3 ml Q4HWA RESP THERAPY HHN Last administered on 06/05/18at 12:09; Admin Dose 3 ML; Start 06/04/18 at 13:00 Assessment/Plan Hospital Course (Demo Recall) left hip and sciatic nerve pain pre-op ambulating B.I.D. without great difficulty currently on antibiotics ,steroids and HH Nebulizer O2 sat improving somewhat. Will discuss with Pulmonary. Assessment/Plan (Daily) patient improving ABG ok per will discuss possibility of discharge today with him and schedure of Rx. JAKI VILLAR MD Jun 05, 2018 14:08
[2018-06-05] MEDS: AZITHROMYCIN 250 MG in SOD CHLORIDE 0.9% 250 ML IVPB SCH (14:24)
[2018-06-05 16:06] VITALS: BP 133/75; PULSE 77; RESP 19
== END 2018-06-05 17:00 | disposition home or self-care (01) | DRG 501 ==
LOC: SDS 07:53 → REC 10:42 → SDS 10:42 → INTOOBSV 10:42 → MS1 13:40 → OBSVTOIN 06-01 08:05
PROVIDERS: ADMIT Orthopaedic Surgery; ATTEND Orthopaedic Surgery
PROC: 0MBM0ZZ Excision of Left Hip Bursa and Ligament, Open Approach (ICD-10-PCS; 2018-05-30)
PROC: 01NF0ZZ Release Sciatic Nerve, Open Approach (ICD-10-PCS; 2018-05-30)
PROC: 0LQK0ZZ Repair Left Hip Tendon, Open Approach (ICD-10-PCS; principal; 2018-05-30 10:00)
DX: M70.62 Trochanteric bursitis, left hip (principal); Z68.43 Body mass index [BMI] 50.0-59.9, adult; J98.11 Atelectasis; S76.012A Strain of muscle, fascia and tendon of left hip, initial encounter; G58.8 Other specified mononeuropathies; E66.01 Morbid (severe) obesity due to excess calories; E88.81 Metabolic syndrome and other insulin resistance; G47.33 Obstructive sleep apnea (adult) (pediatric); M54.32 Sciatica, left side; R09.02 Hypoxemia; X58.XXXA Exposure to other specified factors, initial encounter
CPT/HCPCS: 36600; 71045; 72170; 80048; 80053; 82803; 83735; 84100; 84703; 85025; 86999; 93970; 94640; 94664; 97116; 97161; 97530; G0378; J0131; J0171; J0456; J0690; J0735; J1100; J1170; J1650; J1885; J2175; J2250; J2274; J2405; J2710; J2920; J3010; J3370; J7050; J7120; J7512